=== PATIENT | male | born 1955 | race Two or more races ===

== ENCOUNTER 2017-12-06 08:37 | Inpatient (IN) | payer MEDICAID ==
[~2017-12-06] VITALS: Ht 167.6 cm; Wt 97.3 kg
[2017-12-06] MEDS ORDERED: ALBUTEROL SULFATE 2.5 MG/3 ML ONE ×2 (09:26→10:23)
[2017-12-06] MEDS ORDERED: HYDR-3307 PO (09:27)
[2017-12-06] MEDS ORDERED: METF500T4 PO (09:27)
[2017-12-06] MEDS ORDERED: LISI2.5T PO (09:27)
[2017-12-06] MEDS ORDERED: ATORVASTATIN PO (09:27)
[2017-12-06] MEDS ORDERED: DIAZ10TA4 PO (09:27)
[2017-12-06 09:28] LABS: BASOPHILS # (AUTO) 0.21 x10^3/uL (0-0.1); BASOPHILS % (AUTO) 1 % (0-1); EOSINOPHILS % (AUTO) 0 % (1-7); LYMPHOCYTES # (AUTO) 1.34 x10^3/uL (1-3.4); LYMPHOCYTES % (AUTO) 8 % (22-44); MD NO; MEAN CORPUSCULAR HGB CONC 32.6 g/dL (33.2-36.2); MEAN PLATELET VOLUME 8.4 fL (7.4-10.4); MONOCYTES # (AUTO) 1.08 x10^3/uL (0.2-0.8); MONOCYTES % (AUTO) 6 % (2-9); NEUTROPHILS # (AUTO) 15.09 x10^3/uL (1.8-6.8); NEUTROPHILS % (AUTO) 85 % (42-75); PLATELET COUNT 247 x10^3/uL (130-400); RED BLOOD COUNT 4.71 x10^6/uL (4.38-5.82); RED CELL DISTRIBUTION WIDTH 18.9 % (9.4-14.8)
[2017-12-06] MEDS ORDERED: ALBUTEROL SULFATE 2.5 MG/3 ML NPPB ONE ×2 (09:30→10:30)
[2017-12-06 09:36] LABS: ALBUMIN 2.9 g/dL (3.4-5.0); ANION GAP 7 mmol/L (5-15); CHLORIDE 110 mmol/L (98-107)
[2017-12-06 09:39] LABS: ALANINE AMINOTRANSFERASE 334 U/L (12-78); ALKALINE PHOSPHATASE 78 U/L (45-117); BILIRUBIN,TOTAL 0.4 mg/dL (0.2-1.0); CREATININE 0.78 mg/dL (0.7-1.3); TOTAL PROTEIN 7.1 g/dL (6.4-8.2)
[2017-12-06 09:43] LABS: TROPONIN I < 0.015 ng/mL (0.000-0.045)
[2017-12-06] MEDS ORDERED: MORPHINE SULFATE 4 MG/ML, 1ML IVPush PRN (10:30)
[2017-12-06] MEDS ORDERED: SODIUM CHLORIDE FLUSH 10ML SYR IVF ONE (10:30)
[2017-12-06] MEDS ORDERED: MORPHINE SULFATE 4 MG/ML, 1ML ONE (10:32)
[2017-12-06] MEDS ORDERED: SODIUM CHLORIDE FLUSH 10ML SYR IVF PRN (11:30)
[2017-12-06] MEDS ORDERED: ACETAMINOPHEN 325 MG TABLET PO PRN (12:00)
[2017-12-06] MEDS: ENOXAPARIN 40 MG/0.4 ML SQ SCH (12:00)
[2017-12-06] MEDS ORDERED: POLYETHYLENE GLYCOL 17 GM PACKET PO PRN (12:00)
[2017-12-06] MEDS ORDERED: hydrALAzine 20 MG/ML, 1ML IVPush PRN (12:00)
[2017-12-06] MEDS ORDERED: DOCUSATE 100 MG CAPSULE PO PRN (12:00)
[2017-12-06] MEDS ORDERED: ONDANSETRON ODT 4 MG PO PRN (12:00)
[2017-12-06 12:18] LABS: % IRON SATURATION 10 % (20-55); IRON LEVEL 40 mcg/dL (65-175); TOTAL IRON BINDING CAPACITY 384 mcg/dL (250-450)
[2017-12-06 12:33] VITALS: BP 160/94
[2017-12-06] MEDS: SODIUM CHLORIDE 0.9% 1,000 ML IV SCH ×2 (13:16→23:38)
[2017-12-06] MEDS: HYDROcodone/APAP 5/325 TABLET PO PRN ×3 (13:38→23:36)
[2017-12-06] MEDS: GUAIFENESIN ER 600 MG TABLET PO SCH ×2 (13:38→21:58)
[2017-12-06] MEDS: metFORMIN 500 MG TABLET PO SCH ×2 (13:39→21:58)
[2017-12-06] MEDS: LISINOPRIL 10 MG TABLET PO SCH (13:46)
[2017-12-06] MEDS: ALBUTEROL/IPRATROPIUM 2.5MG/0.5MG, 3 ML NPPB SCH ×2 (14:13→19:09)
[2017-12-06] MEDS: DOXYCYCLINE 100MG TABLET PO SCH ×2 (14:33→21:58)
[2017-12-06] MEDS: INSULIN LISPRO 100 UNITS/ML, PEN SQ-INSULIN SCH ×2 (16:00→20:59)
[2017-12-06 16:23] VITALS: BP 158/89
[2017-12-06 19:34] VITALS: BP 158/86
[2017-12-07 00:23] VITALS: BP 162/91
[2017-12-07 05:35] LABS: BASOPHILS # (AUTO) 0.17 x10^3/uL (0-0.1); BASOPHILS % (AUTO) 1 % (0-1); EOSINOPHILS # (AUTO) 0.01 x10^3/uL (0-0.4); EOSINOPHILS % (AUTO) 0 % (1-7); LYMPHOCYTES # (AUTO) 1.89 x10^3/uL (1-3.4); LYMPHOCYTES % (AUTO) 16 % (22-44); MD NO; MEAN CORPUSCULAR HGB CONC 32.3 g/dL (33.2-36.2); MEAN CORPUSCULAR VOLUME 83.5 fL (81-97); MEAN PLATELET VOLUME 8.8 fL (7.4-10.4); MONOCYTES # (AUTO) 1.17 x10^3/uL (0.2-0.8); MONOCYTES % (AUTO) 10 % (2-9); NEUTROPHILS % (AUTO) 73 % (42-75); PLATELET COUNT 179 x10^3/uL (130-400); RED BLOOD COUNT 4.18 x10^6/uL (4.38-5.82); RED CELL DISTRIBUTION WIDTH 18.6 % (9.4-14.8)
[2017-12-07 05:43] LABS: CHLORIDE 109 mmol/L (98-107)
[2017-12-07 05:45] LABS: HEMOGLOBIN A1C 6.6 % (4.2-6.3)
[2017-12-07 05:53] LABS: ALANINE AMINOTRANSFERASE 378 U/L (12-78); ALBUMIN 2.5 g/dL (3.4-5.0); ALKALINE PHOSPHATASE 74 U/L (45-117); ANION GAP 7 mmol/L (5-15); BILIRUBIN,TOTAL 0.4 mg/dL (0.2-1.0); CALCIUM 7.3 mg/dL (8.5-10.1); CHOL/HDL RATIO 2.2; CHOLESTEROL, TOTAL 150 mg/dL (140-239); CREATININE 0.73 mg/dL (0.7-1.3); HDL CHOL % 45 % (26-37); HDL CHOLESTEROL (DIRECT) 67 mg/dL (40-60); LDL CHOLESTEROL,CALCULATED 69 mg/dL (54-169); THYROID STIMULATING HORMONE 0.493 mIU/L (0.358-3.740); TOTAL PROTEIN 6.2 g/dL (6.4-8.2); TRIGLYCERIDES 72 mg/dL (50-200); VLDL CHOLESTEROL 14 mg/dL (0-25)
[2017-12-07 07:22] VITALS: BP 166/96
[2017-12-07] MEDS: INSULIN LISPRO 100 UNITS/ML, PEN SQ-INSULIN SCH ×3 (07:28→17:59)
[2017-12-07] MEDS ORDERED: HYDROmorphone 2 MG/ML, 1ML IV ONE (07:30)
[2017-12-07] MEDS ORDERED: LISI-167 PO (07:43)
[2017-12-07] MEDS ORDERED: ALBU18HF INH (07:43)
[2017-12-07] MEDS ORDERED: METF500T4 PO (07:43)
[2017-12-07] MEDS ORDERED: ATORVASTATIN PO (07:43)
[2017-12-07] MEDS ORDERED: FERR325T18 PO (07:47)
[2017-12-07] MEDS: ALBUTEROL/IPRATROPIUM 2.5MG/0.5MG, 3 ML NPPB SCH (08:03)
[2017-12-07] MEDS: LISINOPRIL 10 MG TABLET PO SCH (08:12)
[2017-12-07] MEDS: DOXYCYCLINE 100MG TABLET PO SCH (08:13)
[2017-12-07] MEDS: metFORMIN 500 MG TABLET PO SCH (08:13)
[2017-12-07] MEDS: GUAIFENESIN ER 600 MG TABLET PO SCH (08:13)
[2017-12-07] MEDS ORDERED: ALBUTEROL/IPRATROPIUM 2.5MG/0.5MG, 3 ML NPPB PRN (10:30)
[2017-12-07] MEDS: ENOXAPARIN 40 MG/0.4 ML SQ SCH (12:46)
[2017-12-07] MEDS: HYDROcodone/APAP 5/325 TABLET PO PRN (12:48)
[2017-12-07 13:28] VITALS: BP 163/99
== END 2017-12-07 18:25 | disposition home or self-care (01) | DRG 202 ==
LOC: ED 11:11 → EDIP 11:12 → ED 11:31 → SUATTDRO 11:42 → 4WST 12:32
PROVIDERS: ADMIT Hospitalist; ATTEND Hospitalist
DX: J45.41 Moderate persistent asthma with (acute) exacerbation (principal); E43 Unspecified severe protein-calorie malnutrition; J96.11 Chronic respiratory failure with hypoxia; E11.9 Type 2 diabetes mellitus without complications; B18.2 Chronic viral hepatitis C; D50.9 Iron deficiency anemia, unspecified; E66.9 Obesity, unspecified; R74.0 Nonspecific elevation of levels of transaminase and lactic acid dehydrogenase [LDH]; M54.9 Dorsalgia, unspecified; I25.10 Atherosclerotic heart disease of native coronary artery without angina pectoris; I10 Essential (primary) hypertension; G89.4 Chronic pain syndrome; F17.210 Nicotine dependence, cigarettes, uncomplicated; Z86.73 Personal history of transient ischemic attack (TIA), and cerebral infarction without residual deficits; I25.2 Old myocardial infarction; Z90.49 Acquired absence of other specified parts of digestive tract; Z88.8 Allergy status to other drugs, medicaments and biological substances; Z88.2 Allergy status to sulfonamides; Z79.899 Other long term (current) drug therapy; Z68.34 Body mass index [BMI] 34.0-34.9, adult
CPT/HCPCS: 36415; 71046; 71250; 80053; 80061; 82962; 83036; 83540; 83550; 83735; 84100; 84443; 84484; 85025; 93005; 93306; 94640; J1170; J7613; J7620; J1815; J7030; J7512

== ENCOUNTER 2017-12-24 08:29 | Inpatient (IN) | payer MEDICAID ==
[~2017-12-24] VITALS: Ht 170.2 cm; Wt 98.7 kg
[~2017-12-24 08:29] MED LIST: ALBU18HF INH; ATORVASTATIN PO; DIAZ10TA4 PO; FERR325T18 PO; HYDR-3307 PO; LISI-167 PO; LISI2.5T PO; METF500T4 PO
[2017-12-24] MEDS ORDERED: methylPREDNISolone SOD SUCC 125 MG/2 ML ONE (08:47)
[2017-12-24] MEDS ORDERED: ALBUTEROL/IPRATROPIUM 2.5MG/0.5MG, 3 ML ONE (08:48)
[2017-12-24] MEDS ORDERED: methylPREDNISolone SOD SUCC 125 MG/2 ML IVP ONE (09:00)
[2017-12-24] MEDS ORDERED: ALBUTEROL/IPRATROPIUM 2.5MG/0.5MG, 3 ML NPPB ONE (09:00)
[2017-12-24 09:42] LABS: BASOPHILS # (AUTO) 0.14 x10^3/uL (0-0.1); BASOPHILS % (AUTO) 1 % (0-1); EOSINOPHILS # (AUTO) 0.07 x10^3/uL (0-0.4); EOSINOPHILS % (AUTO) 1 % (1-7); LYMPHOCYTES % (AUTO) 36 % (22-44); MD NO; MEAN CORPUSCULAR HEMOGLOBIN 27.1 pg (27.5-34.5); MEAN CORPUSCULAR HGB CONC 32.5 g/dL (33.2-36.2); MEAN CORPUSCULAR VOLUME 83.5 fL (81-97); MEAN PLATELET VOLUME 8.4 fL (7.4-10.4); MONOCYTES # (AUTO) 1.02 x10^3/uL (0.2-0.8); MONOCYTES % (AUTO) 10 % (2-9); NEUTROPHILS # (AUTO) 5.63 x10^3/uL (1.8-6.8); NEUTROPHILS % (AUTO) 53 % (42-75); PLATELET COUNT 268 x10^3/uL (130-400); RED BLOOD COUNT 5.07 x10^6/uL (4.38-5.82); RED CELL DISTRIBUTION WIDTH 21.1 % (9.4-14.8)
[2017-12-24 09:50] LABS: ALBUMIN 3.2 g/dL (3.4-5.0); ANION GAP 9 mmol/L (5-15); CALCIUM 8.1 mg/dL (8.5-10.1); CHLORIDE 109 mmol/L (98-107); CREATININE 0.72 mg/dL (0.7-1.3)
[2017-12-24 09:54] LABS: TROPONIN I < 0.015 ng/mL (0.000-0.045)
[2017-12-24] MEDS ORDERED: LEVOFLOXACIN/PMX 750MG/150ML 150 ML IVPB ONE (10:00)
[2017-12-24] MEDS ORDERED: HYDROcodone/APAP 5/325 TABLET PO ONE (10:00)
[2017-12-24] MEDS ORDERED: HYDROcodone/APAP 5/325 TABLET ONE (10:08)
[2017-12-24] MEDS ORDERED: LEVOFLOXACIN/PMX 750MG/150ML 150 ML ONE (10:08)
[2017-12-24 11:00] VITALS: BP 137/76
[2017-12-24] MEDS ORDERED: BISACODYL 10 MG SUPP PR PRN (12:00)
[2017-12-24] MEDS: INSULIN LISPRO 100 UNITS/ML, PEN SQ-INSULIN SCH ×3 (12:00→21:16)
[2017-12-24] MEDS ORDERED: PROMETHAZINE 25 MG/ML, 1ML IM PRN (12:00)
[2017-12-24] MEDS ORDERED: POLYETHYLENE GLYCOL 17 GM PACKET PO PRN (12:00)
[2017-12-24] MEDS ORDERED: FUROSEMIDE 20 MG/2 ML IV ONE (12:00)
[2017-12-24] MEDS ORDERED: ONDANSETRON ODT 4 MG PO PRN (12:00)
[2017-12-24] MEDS ORDERED: ACETAMINOPHEN 325 MG TABLET PO PRN (12:00)
[2017-12-24] MEDS: ALBUTEROL/IPRATROPIUM 2.5MG/0.5MG, 3 ML NPPB SCH ×3 (12:28→20:30)
[2017-12-24 12:37] LABS: HEMOGLOBIN A1C 6.6 % (4.2-6.3)
[2017-12-24 12:38] LABS: FREE T4 (FREE THYROXINE) 1.22 ng/dL (0.76-1.46); THYROID STIMULATING HORMONE 1.52 mIU/L (0.358-3.740)
[2017-12-24] MEDS: DOXYCYCLINE 100MG TABLET PO SCH ×2 (13:12→19:49)
[2017-12-24] MEDS: FERROUS SULFATE 325 MG TABLET PO SCH ×2 (13:12→19:49)
[2017-12-24] MEDS: LISINOPRIL 10 MG TABLET PO SCH (13:12)
[2017-12-24] MEDS: CEFTRIAXONE PMX 2GM/50ML 50 ML IV SCH (13:13)
[2017-12-24] MEDS: HEPARIN 5,000 UNITS/ML, 1ML SQ SCH ×2 (13:13→21:16)
[2017-12-24 13:22] VITALS: BP 149/89
[2017-12-24] MEDS: HYDROmorphone 2 MG/ML, 1ML IVPush PRN ×3 (13:27→21:15)
[2017-12-24] MEDS: methylPREDNISolone SOD SUCC 125 MG/2 ML IVPush SCH ×2 (16:30→22:14)
[2017-12-24] MEDS: FLUTICASONE/VILANTEROL 200-25MCG/INH INH SCH (16:30)
[2017-12-24 19:25] VITALS: BP 133/90
[2017-12-24] MEDS: OXYcodone IR 5MG TABLET PO PRN (19:49)
[2017-12-24] MEDS: ATORVASTATIN 20 MG PO SCH (19:51)
[2017-12-24 20:07] LABS: CULTURE INDICATED? NO; MICROSCOPIC INDICATED
[2017-12-25] MEDS: HYDROmorphone 2 MG/ML, 1ML IVPush PRN ×6 (00:32→22:13)
[2017-12-25 01:16] VITALS: BP 125/88
[2017-12-25] MEDS: OXYcodone IR 5MG TABLET PO PRN ×3 (02:41→19:47)
[2017-12-25] MEDS: HEPARIN 5,000 UNITS/ML, 1ML SQ SCH ×3 (04:40→21:32)
[2017-12-25] MEDS: methylPREDNISolone SOD SUCC 125 MG/2 ML IVPush SCH ×4 (04:40→22:13)
[2017-12-25 05:11] LABS: BASOPHILS # (AUTO) 0.04 x10^3/uL (0-0.1); BASOPHILS % (AUTO) 0 % (0-1); EOSINOPHILS % (AUTO) 0 % (1-7); LYMPHOCYTES # (AUTO) 1.17 x10^3/uL (1-3.4); LYMPHOCYTES % (AUTO) 8 % (22-44); MD NO; MEAN CORPUSCULAR HEMOGLOBIN 27.6 pg (27.5-34.5); MEAN CORPUSCULAR HGB CONC 32.8 g/dL (33.2-36.2); MEAN CORPUSCULAR VOLUME 84.2 fL (81-97); MEAN PLATELET VOLUME 8.9 fL (7.4-10.4); MONOCYTES # (AUTO) 0.42 x10^3/uL (0.2-0.8); MONOCYTES % (AUTO) 3 % (2-9); NEUTROPHILS # (AUTO) 12.26 x10^3/uL (1.8-6.8); NEUTROPHILS % (AUTO) 88 % (42-75); PLATELET COUNT 285 x10^3/uL (130-400); RED BLOOD COUNT 5.07 x10^6/uL (4.38-5.82); RED CELL DISTRIBUTION WIDTH 21.1 % (9.4-14.8)
[2017-12-25 05:12] LABS: CHLORIDE 105 mmol/L (98-107)
[2017-12-25 05:20] LABS: ALANINE AMINOTRANSFERASE 246 U/L (12-78); ALBUMIN 3.2 g/dL (3.4-5.0); ALKALINE PHOSPHATASE 98 U/L (45-117); ANION GAP 10 mmol/L (5-15); BILIRUBIN,TOTAL 0.6 mg/dL (0.2-1.0); CALCIUM 8.7 mg/dL (8.5-10.1); CHOL/HDL RATIO 2.7; CHOLESTEROL, TOTAL 184 mg/dL (140-239); CREATININE 1.18 mg/dL (0.7-1.3); HDL CHOL % 36 % (26-37); HDL CHOLESTEROL (DIRECT) 67 mg/dL (40-60); LDL CHOLESTEROL,CALCULATED 104 mg/dL (54-169); LDL/HDL RATIO 1.6 (0.5-3.0); TOTAL PROTEIN 8.1 g/dL (6.4-8.2); TRIGLYCERIDES 65 mg/dL (50-200); VLDL CHOLESTEROL 13 mg/dL (0-25)
[2017-12-25] MEDS: INSULIN LISPRO 100 UNITS/ML, PEN SQ-INSULIN SCH ×4 (07:00→21:32)
[2017-12-25] MEDS: ALBUTEROL/IPRATROPIUM 2.5MG/0.5MG, 3 ML NPPB SCH ×4 (07:25→19:31)
[2017-12-25] MEDS: LISINOPRIL 10 MG TABLET PO SCH (08:06)
[2017-12-25] MEDS: FLUTICASONE/VILANTEROL 200-25MCG/INH INH SCH (08:06)
[2017-12-25] MEDS: SENNA/DOCUSATE TABLET PO SCH (08:06)
[2017-12-25] MEDS: FERROUS SULFATE 325 MG TABLET PO SCH ×2 (08:06→21:32)
[2017-12-25] MEDS: DOXYCYCLINE 100MG TABLET PO SCH ×2 (08:06→21:32)
[2017-12-25 08:16] VITALS: BP 166/101
[2017-12-25] MEDS: hydrALAzine 20 MG/ML, 1ML IVPush PRN (08:20)
[2017-12-25 09:34] VITALS: BP 155/96
[2017-12-25] MEDS: CEFTRIAXONE PMX 2GM/50ML 50 ML IV SCH (13:22)
[2017-12-25 14:44] VITALS: BP 135/79
[2017-12-25 18:52] VITALS: BP 111/78
[2017-12-25] MEDS: ATORVASTATIN 20 MG PO SCH (21:00)
[2017-12-26] MEDS: OXYcodone IR 5MG TABLET PO PRN ×2 (00:50→06:11)
[2017-12-26 02:58] VITALS: BP 133/88
[2017-12-26] MEDS: HYDROmorphone 2 MG/ML, 1ML IVPush PRN ×3 (03:10→12:37)
[2017-12-26] MEDS: HEPARIN 5,000 UNITS/ML, 1ML SQ SCH ×3 (04:42→21:44)
[2017-12-26] MEDS: methylPREDNISolone SOD SUCC 125 MG/2 ML IVPush SCH ×3 (04:42→19:46)
[2017-12-26 06:45] VITALS: BP 147/85
[2017-12-26] MEDS: ALBUTEROL/IPRATROPIUM 2.5MG/0.5MG, 3 ML NPPB SCH ×4 (07:02→20:00)
[2017-12-26] MEDS: SENNA/DOCUSATE TABLET PO SCH (07:42)
[2017-12-26] MEDS: LISINOPRIL 10 MG TABLET PO SCH (08:08)
[2017-12-26] MEDS: FLUTICASONE/VILANTEROL 200-25MCG/INH INH SCH (08:08)
[2017-12-26] MEDS: DOXYCYCLINE 100MG TABLET PO SCH ×2 (08:08→21:45)
[2017-12-26] MEDS: FERROUS SULFATE 325 MG TABLET PO SCH ×2 (08:08→21:45)
[2017-12-26] MEDS: INSULIN LISPRO 100 UNITS/ML, PEN SQ-INSULIN SCH ×4 (08:12→21:45)
[2017-12-26] MEDS: CEFTRIAXONE PMX 2GM/50ML 50 ML IV SCH (12:38)
[2017-12-26 14:53] VITALS: BP 136/93
[2017-12-26] MEDS: OxyconTIN ER 10 MG TAB.ER PO SCH (16:44)
[2017-12-26] MEDS: GUAIFENESIN 200 MG TABLET PO SCH (16:44)
[2017-12-26 20:55] VITALS: BP 144/78
[2017-12-26] MEDS: ATORVASTATIN 20 MG PO SCH (21:00)
[2017-12-26] MEDS: HYDROcodone/APAP 10/325 MG TABLET PO SCH (21:54)
[2017-12-27] MEDS: methylPREDNISolone SOD SUCC 125 MG/2 ML IVPush SCH ×4 (02:17→18:39)
[2017-12-27] MEDS: HYDROcodone/APAP 10/325 MG TABLET PO SCH ×2 (02:17→06:08)
[2017-12-27 02:35] VITALS: BP 137/77
[2017-12-27 05:47] LABS: BASOPHILS % (AUTO) 1 % (0-1); EOSINOPHILS % (AUTO) 0 % (1-7); LYMPHOCYTES # (AUTO) 1.01 x10^3/uL (1-3.4); LYMPHOCYTES % (AUTO) 7 % (22-44); MD NO; MEAN CORPUSCULAR HEMOGLOBIN 26.9 pg (27.5-34.5); MEAN CORPUSCULAR HGB CONC 31.6 g/dL (33.2-36.2); MEAN CORPUSCULAR VOLUME 85.1 fL (81-97); MEAN PLATELET VOLUME 8.3 fL (7.4-10.4); MONOCYTES # (AUTO) 0.45 x10^3/uL (0.2-0.8); MONOCYTES % (AUTO) 3 % (2-9); NEUTROPHILS # (AUTO) 13.47 x10^3/uL (1.8-6.8); NEUTROPHILS % (AUTO) 90 % (42-75); PLATELET COUNT 262 x10^3/uL (130-400); RED CELL DISTRIBUTION WIDTH 21.6 % (9.4-14.8)
[2017-12-27 05:59] LABS: ANION GAP 6 mmol/L (5-15); CALCIUM 8.3 mg/dL (8.5-10.1); CHLORIDE 112 mmol/L (98-107)
[2017-12-27] MEDS: GUAIFENESIN 200 MG TABLET PO SCH ×2 (06:08→17:29)
[2017-12-27] MEDS: OxyconTIN ER 10 MG TAB.ER PO SCH ×2 (06:08→17:29)
[2017-12-27] MEDS: HEPARIN 5,000 UNITS/ML, 1ML SQ SCH ×3 (06:08→20:32)
[2017-12-27] MEDS: ALBUTEROL/IPRATROPIUM 2.5MG/0.5MG, 3 ML NPPB SCH ×4 (07:00→19:37)
[2017-12-27] MEDS: INSULIN LISPRO 100 UNITS/ML, PEN SQ-INSULIN SCH ×4 (07:00→20:33)
[2017-12-27 07:09] VITALS: BP 139/87
[2017-12-27] MEDS: FLUTICASONE/VILANTEROL 200-25MCG/INH INH SCH (09:00)
[2017-12-27] MEDS: SENNA/DOCUSATE TABLET PO SCH (09:00)
[2017-12-27] MEDS: DOXYCYCLINE 100MG TABLET PO SCH ×2 (09:42→20:32)
[2017-12-27] MEDS: FERROUS SULFATE 325 MG TABLET PO SCH ×2 (09:42→20:32)
[2017-12-27] MEDS: HYDROcodone/APAP 10/325 MG TABLET PO PRN ×4 (09:42→22:07)
[2017-12-27] MEDS: LISINOPRIL 10 MG TABLET PO SCH (09:42)
[2017-12-27] MEDS: CEFTRIAXONE PMX 2GM/50ML 50 ML IV SCH (12:52)
[2017-12-27 14:13] VITALS: BP 166/94
[2017-12-27] MEDS: ATORVASTATIN 20 MG PO SCH (20:33)
[2017-12-27 21:48] VITALS: BP 176/100
[2017-12-27] MEDS: hydrALAzine 20 MG/ML, 1ML IVPush PRN (22:06)
[2017-12-27] MEDS ORDERED: LABETALOL 5MG/ML, 20ML ONE (23:36)
[2017-12-27] MEDS ORDERED: MORPHINE SULFATE 4 MG/ML, 1ML ONE (23:40)
[2017-12-27 23:59] LABS: TROPONIN I < 0.015 ng/mL (0.000-0.045)
[2017-12-28] MEDS ORDERED: LABETALOL 5MG/ML, 20ML IVPush ONE
[2017-12-28] MEDS ORDERED: MORPHINE SULFATE 4 MG/ML, 1ML IVPush ONE
[2017-12-28 00:14] VITALS: BP 158/91
[2017-12-28] MEDS: methylPREDNISolone SOD SUCC 125 MG/2 ML IVPush SCH ×2 (01:08→09:08)
[2017-12-28] MEDS: GUAIFENESIN 200 MG TABLET PO SCH ×2 (05:53→16:51)
[2017-12-28] MEDS: OxyconTIN ER 10 MG TAB.ER PO SCH ×2 (05:53→16:51)
[2017-12-28] MEDS: HEPARIN 5,000 UNITS/ML, 1ML SQ SCH ×3 (05:53→21:25)
[2017-12-28] MEDS: HYDROcodone/APAP 10/325 MG TABLET PO PRN ×2 (05:58→14:38)
[2017-12-28] MEDS: INSULIN LISPRO 100 UNITS/ML, PEN SQ-INSULIN SCH ×4 (07:00→21:25)
[2017-12-28] MEDS: ALBUTEROL/IPRATROPIUM 2.5MG/0.5MG, 3 ML NPPB SCH ×4 (07:00→20:00)
[2017-12-28 09:00] VITALS: BP 188/104
[2017-12-28] MEDS: SENNA/DOCUSATE TABLET PO SCH (09:00)
[2017-12-28] MEDS: LISINOPRIL 10 MG TABLET PO SCH (09:08)
[2017-12-28] MEDS: FLUTICASONE/VILANTEROL 200-25MCG/INH INH SCH (09:08)
[2017-12-28] MEDS: DOXYCYCLINE 100MG TABLET PO SCH ×2 (09:09→21:26)
[2017-12-28] MEDS: FERROUS SULFATE 325 MG TABLET PO SCH ×2 (09:09→21:26)
[2017-12-28] MEDS ORDERED: MORPHINE SULFATE 4 MG/ML, 1ML IVPush PRN (12:00)
[2017-12-28] MEDS: LOSARTAN 50MG TABLET PO SCH ×2 (12:03→21:26)
[2017-12-28] MEDS: ONDANSETRON 2MG/ML, 2ML IVPush PRN (13:49)
[2017-12-28 13:55] VITALS: BP 167/95
[2017-12-28] MEDS: CEFTRIAXONE PMX 2GM/50ML 50 ML IV SCH (14:37)
[2017-12-28 14:39] VITALS: BP 166/100
[2017-12-28 19:21] VITALS: BP 137/80
[2017-12-28] MEDS: HYDROcodone/APAP 10/325 MG TABLET PO SCH (21:25)
[2017-12-28] MEDS: ATORVASTATIN 20 MG PO SCH (21:26)
[2017-12-29 02:00] VITALS: BP 171/85
[2017-12-29] MEDS: GUAIFENESIN 200 MG TABLET PO SCH ×2 (05:55→17:33)
[2017-12-29] MEDS: HEPARIN 5,000 UNITS/ML, 1ML SQ SCH ×2 (05:56→13:50)
[2017-12-29] MEDS: OxyconTIN ER 10 MG TAB.ER PO SCH ×2 (05:56→17:33)
[2017-12-29] MEDS: INSULIN LISPRO 100 UNITS/ML, PEN SQ-INSULIN SCH ×3 (07:00→17:41)
[2017-12-29] MEDS: ALBUTEROL/IPRATROPIUM 2.5MG/0.5MG, 3 ML NPPB SCH ×3 (07:50→15:52)
[2017-12-29 07:56] VITALS: BP 164/97
[2017-12-29] MEDS: SENNA/DOCUSATE TABLET PO SCH (09:00)
[2017-12-29] MEDS: DOXYCYCLINE 100MG TABLET PO SCH (09:28)
[2017-12-29] MEDS: FERROUS SULFATE 325 MG TABLET PO SCH (09:28)
[2017-12-29] MEDS: LOSARTAN 50MG TABLET PO SCH (09:28)
[2017-12-29] MEDS: FLUTICASONE/VILANTEROL 200-25MCG/INH INH SCH (09:29)
[2017-12-29] MEDS ORDERED: FLUT1BLS INH (11:25)
[2017-12-29] MEDS ORDERED: PRED5TAB PO (11:25)
[2017-12-29] MEDS ORDERED: LOSA50TA2 PO (11:25)
[2017-12-29] MEDS ORDERED: LEVO750T26 PO (11:25)
[2017-12-29] MEDS ORDERED: GUAI200T3 PO (11:25)
[2017-12-29] MEDS ORDERED: IPRA3AMP NPPB (11:25)
[2017-12-29] MEDS ORDERED: HYDR25TA6 PO (11:25)
[2017-12-29] MEDS ORDERED: HYDROCHLOROTHIAZIDE 25 MG TABLET PO SCH (11:30)
[2017-12-29] MEDS ORDERED: IBUPROFEN 200 MG TABLET PO PRN (11:30)
[2017-12-29] MEDS ORDERED: CEFTAZIDIME PMX 2 GM/50ML 50 ML IV SCH (11:30)
[2017-12-29] MEDS: CEFTAZIDIME 2,000 MG in SODIUM CHLORIDE 0.9% 50 ML IV SCH ×2 (11:48→12:45)
[2017-12-29] MEDS: HYDROcodone/APAP 10/325 MG TABLET PO SCH (13:51)
[2017-12-29 14:15] VITALS: BP 167/115
[2017-12-29] MEDS: ONDANSETRON 2MG/ML, 2ML IVPush PRN (17:41)
== END 2017-12-29 18:11 | disposition home or self-care (01) | DRG 193 ==
LOC: ED 09:34 → EDIP 09:53 → 3NE 10:55 → 5SO 12-28 00:03
PROVIDERS: ADMIT Internal Medicine; ATTEND Internal Medicine
DX: J15.9 Unspecified bacterial pneumonia (principal); J96.21 Acute and chronic respiratory failure with hypoxia; E44.0 Moderate protein-calorie malnutrition; I50.32 Chronic diastolic (congestive) heart failure; J44.0 Chronic obstructive pulmonary disease with (acute) lower respiratory infection; J44.1 Chronic obstructive pulmonary disease with (acute) exacerbation; Z68.34 Body mass index [BMI] 34.0-34.9, adult; B18.2 Chronic viral hepatitis C; E11.9 Type 2 diabetes mellitus without complications; E66.9 Obesity, unspecified; E78.5 Hyperlipidemia, unspecified; G89.29 Other chronic pain; I11.0 Hypertensive heart disease with heart failure; M54.9 Dorsalgia, unspecified; I25.2 Old myocardial infarction; J84.10 Pulmonary fibrosis, unspecified; Z82.3 Family history of stroke; Z82.49 Family history of ischemic heart disease and other diseases of the circulatory system; Z83.3 Family history of diabetes mellitus; Z86.73 Personal history of transient ischemic attack (TIA), and cerebral infarction without residual deficits; Z87.891 Personal history of nicotine dependence
CPT/HCPCS: 36415; 36600; 70450; 70551; 71045; 71275; 80048; 80053; 80061; 81001; 82040; 82803; 82962; 83036; 83605; 83735; 84145; 84439; 84443; 84484; 85025; 87040; 87070; 87077; 87186; 87205; 93005; 94640; 96374; J0696; J0713; J1170; J1644; J1956; J2405; J7620; Q0162; J0360; J1940; J2930; J7512

== ENCOUNTER 2018-01-20 18:19 | Emergency (ER) | payer MEDICAID ==
[~2018-01-20] VITALS: Ht 170.2 cm; Wt 96.0 kg
[~2018-01-20 18:19] MED LIST changes: +FLUT1BLS INH; +GUAI200T3 PO; +HYDR25TA6 PO; +IPRA3AMP NPPB; +LEVO750T26 PO; +LOSA50TA2 PO; -METF500T4 PO; +METF500T5 PO; +PRED5TAB PO
[2018-01-20] MEDS ORDERED: SODIUM CHLORIDE FLUSH 10ML SYR IVF ONE (19:00)
[2018-01-20 19:27] LABS: ANION GAP 7 mmol/L (5-15); CALCIUM 8.2 mg/dL (8.5-10.1); CHLORIDE 105 mmol/L (98-107); CREATININE 0.81 mg/dL (0.7-1.3)
[2018-01-20 19:48] LABS: MEAN CORPUSCULAR HEMOGLOBIN 28.1 pg (27.5-34.5); MEAN CORPUSCULAR HGB CONC 32.8 g/dL (33.2-36.2); MEAN CORPUSCULAR VOLUME 85.6 fL (81-97); MEAN PLATELET VOLUME 8.5 fL (7.4-10.4); PLATELET COUNT 268 x10^3/uL (130-400); RED CELL DISTRIBUTION WIDTH 22.1 % (9.4-14.8)
[2018-01-20 20:02] LABS: MD YES
[2018-01-20 20:05] VITALS: BP 129/84
[2018-01-20] MEDS ORDERED: DIAZ5TAB4 PO (20:08)
[2018-01-20] MEDS ORDERED: OMNIPAQUE 350 MG/ML, 100ML BOTTLE ONE (20:08)
[2018-01-20 20:23] LABS: BAND#(MANUAL) 0.07 x10^3/uL; BANDS%(MANUAL) 1 % (0-7); EOS#(MANUAL) 0.28 x10^3/uL (0.0-0.4); EOS% (MANUAL) 4 % (1-7); LYMPHS% (MANUAL) 30 % (22-44); MONOS#(MANUAL) 0.63 x10^3/uL (0.3-2.7); MONOS% (MANUAL) 9 % (2-9); REACTIVE LYMPHS # (MANUAL) 1.05 x10^3/uL (0-0); REACTIVE LYMPHS % (MANUAL) 15 % (0-0); SEG#(MANUAL) 2.87 x10^3/uL (1.8-6.8); SEGS% (MANUAL) 41 % (42-75)
[2018-01-20 20:27] LABS: <PLATELET ESTIMATE> ADEQUATE; <PLT MORPHOLOGY> NORMAL PLT MORPH; ANISOCYTOSIS 1+; POLYCHROMASIA 1+
[2018-01-20] MEDS ORDERED: ACETAMINOPHEN 325 MG TABLET PO ONE (20:30)
[2018-01-20] MEDS ORDERED: ACETAMINOPHEN 325 MG TABLET ONE (20:30)
== END 2018-01-20 21:02 | disposition home or self-care (01) ==
LOC: ED 20:25
DX: G89.11 Acute pain due to trauma (principal); R51 Headache; R10.13 Epigastric pain; R07.89 Other chest pain; I11.0 Hypertensive heart disease with heart failure; I25.2 Old myocardial infarction; I50.9 Heart failure, unspecified; J44.9 Chronic obstructive pulmonary disease, unspecified; E11.9 Type 2 diabetes mellitus without complications; Z86.73 Personal history of transient ischemic attack (TIA), and cerebral infarction without residual deficits; Y04.0XXA Assault by unarmed brawl or fight, initial encounter; Y93.89 Activity, other specified; Y92.488 Other paved roadways as the place of occurrence of the external cause; Y99.8 Other external cause status
CPT/HCPCS: 36415; 70450; 71045; 74177; 80048; 80307; 82040; 85025; 93005; 99285; Q9967

== ENCOUNTER 2018-08-12 12:27 | Emergency (ER) | payer MEDICAID ==
[~2018-08-12] VITALS: Ht 170.2 cm; Wt 91.0 kg
[~2018-08-12 12:27] MED LIST changes: +DIAZ5TAB4 PO; -IPRA3AMP NPPB; +IPRA3AMP30 NPPB; +METF-163 PO; +METF500T17 PO; -METF500T5 PO
[2018-08-12 13:17] LABS: BASOPHILS # (AUTO) 0.03 x10^3/uL (0-0.1); BASOPHILS % (AUTO) 0 % (0-1); EOSINOPHILS # (AUTO) 0.06 x10^3/uL (0-0.4); EOSINOPHILS % (AUTO) 1 % (1-7); LYMPHOCYTES # (AUTO) 3.36 x10^3/uL (1-3.4); LYMPHOCYTES % (AUTO) 41 % (22-44); MD NO; MEAN CORPUSCULAR HEMOGLOBIN 29.8 pg (27.5-34.5); MEAN CORPUSCULAR VOLUME 93.1 fL (81-97); MEAN PLATELET VOLUME 8.4 fL (7.4-10.4); MONOCYTES # (AUTO) 0.94 x10^3/uL (0.2-0.8); MONOCYTES % (AUTO) 12 % (2-9); NEUTROPHILS # (AUTO) 3.77 x10^3/uL (1.8-6.8); NEUTROPHILS % (AUTO) 46 % (42-75); PLATELET COUNT 251 x10^3/uL (130-400); RED BLOOD COUNT 3.99 x10^6/uL (4.38-5.82); RED CELL DISTRIBUTION WIDTH 19.2 % (9.4-14.8)
[2018-08-12 13:32] LABS: ALBUMIN 2.9 g/dL (3.4-5.0); ANION GAP 9 mmol/L (5-15); CALCIUM 8.2 mg/dL (8.5-10.1); CHLORIDE 105 mmol/L (98-107)
[2018-08-12 13:37] LABS: ALANINE AMINOTRANSFERASE 257 U/L (12-78); ALKALINE PHOSPHATASE 193 U/L (45-117); CREATININE 0.56 mg/dL (0.7-1.3); TOTAL PROTEIN 7.1 g/dL (6.4-8.2)
--- NOTE | 2018-08-12 14:06 | NUR ---
FROM LOBBY TO ROOM AT THIS TIME
[2018-08-12] MEDS ORDERED: HYDROmorphone 1 MG/ML, 1ML IM ONE (15:00)
[2018-08-12] MEDS ORDERED: HYDROmorphone 2 MG/ML, 1ML ONE (15:15)
--- NOTE | 2018-08-12 15:26 | NUR ---
PT. WAS MEDICATED ORDERED. NO NAUSEA OR VOMITING NOTED WHILE IN THE ER. PT. WAS GIVEN A PRESCRIPTION FOR ZOFRAN. DISCHARGE INSTRUCTIONS GIVEN WITH UNDERSTANDING VERBALIZED ALONG WITH WILLINGNESS TO COMPLY. PT. WAS AMBULATORY WITH A STEADY GAIT TO DISCHARGE.
[2018-08-12 15:28] VITALS: BP 145/90
== END 2018-08-12 15:30 | disposition home or self-care (01) ==
LOC: ED 15:16
DX: K52.9 Noninfective gastroenteritis and colitis, unspecified (principal); M54.9 Dorsalgia, unspecified; J44.9 Chronic obstructive pulmonary disease, unspecified; I11.0 Hypertensive heart disease with heart failure; I50.9 Heart failure, unspecified; I25.2 Old myocardial infarction; E11.9 Type 2 diabetes mellitus without complications; Z86.73 Personal history of transient ischemic attack (TIA), and cerebral infarction without residual deficits
CPT/HCPCS: 36415; 80053; 83690; 85025; 96372; 99283; J1170

== ENCOUNTER 2018-10-04 14:02 | Inpatient (IN) | payer MEDICAID, OTHER ==
[~2018-10-04] VITALS: Ht 170.2 cm; Wt 85.2 kg
--- NOTE | 2018-10-04 14:16 | NUR ---
PT BIB [facility] FOR ALTERED MENTAL STATUS. PT ALERT TO PERSON ONLY. SATS 80% ON RA. PT WITH RIGHT UPPER QUADRANT ABD PAIN AND N/V SINCE TODAY. PT LIVES WITH BROTHER. PT WAS RECENTLY SEEN AT [facility] AND ADMITTED THERE. PT PLACED IN ROOM AND PLACED ON BP, MEAT PROCESS WORKER, AND PULSE OXIMETER. PT PLACED ON 3 LITERS NC AND SATS 97%. ASSESSMENT COMPLETED. PA AT BEDSIDE.
[2018-10-04] MEDS ORDERED: ONDANSETRON 2MG/ML, 2ML IVPush ONE (14:30)
[2018-10-04] MEDS ORDERED: SODIUM CHLORIDE FLUSH 10ML SYR IVF ONE (14:30)
--- NOTE | 2018-10-04 14:39 | NUR ---
ekg done and presented to md. lab at bedside.
[2018-10-04 14:47] LABS: BASOPHILS # (AUTO) 0.01 x10^3/uL (0-0.1); BASOPHILS % (AUTO) 0 % (0-1); EOSINOPHILS # (AUTO) 0.04 x10^3/uL (0-0.4); EOSINOPHILS % (AUTO) 1 % (1-7); LYMPHOCYTES # (AUTO) 1.23 x10^3/uL (1-3.4); LYMPHOCYTES % (AUTO) 26 % (22-44); MD NO; MEAN CORPUSCULAR HEMOGLOBIN 28.2 pg (27.5-34.5); MEAN CORPUSCULAR HGB CONC 31.8 g/dL (33.2-36.2); MEAN CORPUSCULAR VOLUME 88.7 fL (81-97); MEAN PLATELET VOLUME 8.2 fL (7.4-10.4); MONOCYTES # (AUTO) 0.68 x10^3/uL (0.2-0.8); MONOCYTES % (AUTO) 14 % (2-9); NEUTROPHILS # (AUTO) 2.83 x10^3/uL (1.8-6.8); NEUTROPHILS % (AUTO) 59 % (42-75); PLATELET COUNT 230 x10^3/uL (130-400); RED BLOOD COUNT 3.87 x10^6/uL (4.38-5.82); RED CELL DISTRIBUTION WIDTH 20.7 % (9.4-14.8)
--- NOTE | 2018-10-04 15:05 | NUR ---
PT TAKEN TO CT SCAN
[2018-10-04 15:19] LABS: ALANINE AMINOTRANSFERASE 85 U/L (12-78); ALBUMIN 2.2 g/dL (3.4-5.0); ANION GAP 8 mmol/L (5-15); CALCIUM 7.7 mg/dL (8.5-10.1); CHLORIDE 108 mmol/L (98-107)
[2018-10-04 15:22] LABS: ALKALINE PHOSPHATASE 204 U/L (45-117); BILIRUBIN,TOTAL 0.6 mg/dL (0.2-1.0); CREATININE 0.64 mg/dL (0.7-1.3); TOTAL PROTEIN 6.4 g/dL (6.4-8.2); TROPONIN I < 0.015 ng/mL (0.000-0.045)
--- NOTE | 2018-10-04 15:32 | NUR ---
PT BACK FROM CT AND US AT BEDSIDE. TWO ATTEMPS FOR IV UNSUCCESSFUL. IV STARTED RIGHT EJ.
[2018-10-04] MEDS ORDERED: METF500T27 PO (16:16)
[2018-10-04] MEDS ORDERED: LISI-167 PO (16:16)
[2018-10-04] MEDS ORDERED: INSU100C SQ-INSULIN (16:17)
[2018-10-04] MEDS ORDERED: OMEP10CA4 PO (16:17)
[2018-10-04] MEDS ORDERED: INSU100I11 SQ (16:18)
[2018-10-04 16:32] LABS: SALICYLATE LEVEL < 1.7 mg/dL (2.8-20.0)
[2018-10-04 16:38] LABS: ACETAMINOPHEN < 2 mcg/mL (10-30)
[2018-10-04] MEDS ORDERED: LACTULOSE 20 GM/30 ML UDC PO ONE (17:00)
[2018-10-04] MEDS ORDERED: LABETALOL 20 MG/4 ML IVPush PRN (17:30)
[2018-10-04] MEDS ORDERED: ONDANSETRON 2MG/ML, 2ML IVPush PRN (17:30)
[2018-10-04] MEDS ORDERED: hydrALAzine 20 MG/ML, 1ML IVPush PRN (17:30)
--- NOTE | 2018-10-04 17:32 | NUR ---
GAVE REPORT TO RN ON FLOOR. PT WILL BE TRANSFERRED.
[2018-10-04] MEDS ORDERED: ONDANSETRON 2MG/ML, 2ML ONE (17:37)
[2018-10-04 17:38] LABS: RAPID INFLUENZA A Negative (Negative); RAPID INFLUENZA B Negative (Negative)
--- NOTE | 2018-10-04 17:54 | NUR ---
PT TRANSFERRED TO FLOOR.
[2018-10-04] MEDS: LACTATED RINGERS 1,000 ML IV SCH (18:34)
[2018-10-04 19:28] VITALS: BP 108/73
[2018-10-04] MEDS: INSULIN LISPRO 100 UNITS/ML, PEN SQ-INSULIN SCH (21:00)
[2018-10-05 02:08] VITALS: BP 112/70
[2018-10-05] MEDS: LACTATED RINGERS 1,000 ML IV SCH (06:13)
[2018-10-05 06:22] LABS: BASOPHILS # (AUTO) 0.02 x10^3/uL (0-0.1); BASOPHILS % (AUTO) 0 % (0-1); EOSINOPHILS # (AUTO) 0.13 x10^3/uL (0-0.4); EOSINOPHILS % (AUTO) 3 % (1-7); LYMPHOCYTES # (AUTO) 1.65 x10^3/uL (1-3.4); LYMPHOCYTES % (AUTO) 37 % (22-44); MD NO; MEAN CORPUSCULAR HEMOGLOBIN 29.7 pg (27.5-34.5); MEAN CORPUSCULAR HGB CONC 33.5 g/dL (33.2-36.2); MEAN CORPUSCULAR VOLUME 88.6 fL (81-97); MEAN PLATELET VOLUME 8.2 fL (7.4-10.4); MONOCYTES # (AUTO) 0.75 x10^3/uL (0.2-0.8); MONOCYTES % (AUTO) 17 % (2-9); NEUTROPHILS # (AUTO) 1.87 x10^3/uL (1.8-6.8); NEUTROPHILS % (AUTO) 42 % (42-75); PLATELET COUNT 197 x10^3/uL (130-400); RED CELL DISTRIBUTION WIDTH 20.5 % (9.4-14.8)
[2018-10-05 06:27] LABS: ALBUMIN 1.9 g/dL (3.4-5.0); ANION GAP 3 mmol/L (5-15); CALCIUM 7.4 mg/dL (8.5-10.1); CHLORIDE 108 mmol/L (98-107)
[2018-10-05 06:32] LABS: ALANINE AMINOTRANSFERASE 70 U/L (12-78); ALKALINE PHOSPHATASE 185 U/L (45-117); BILIRUBIN,TOTAL 0.6 mg/dL (0.2-1.0); TOTAL PROTEIN 5.7 g/dL (6.4-8.2)
[2018-10-05] MEDS ORDERED: ALBUTEROL/IPRATROPIUM 2.5MG/0.5MG, 3 ML NPPB SCH (07:00)
[2018-10-05] MEDS: INSULIN LISPRO 100 UNITS/ML, PEN SQ-INSULIN SCH (07:00)
[2018-10-05 07:22] VITALS: BP 114/76
[2018-10-05] MEDS ORDERED: OMNIPAQUE 350 MG/ML, 100ML BOTTLE ONE (08:55)
[2018-10-05] MEDS ORDERED: LISINOPRIL 10 MG TABLET PO SCH (09:00)
== END 2018-10-05 09:43 | disposition left against medical advice (07) | DRG 441 ==
LOC: ED 15:31 → EDIP 17:36 → 4WST 17:57
PROVIDERS: ADMIT Hospitalist; ATTEND Hospitalist
DX: K72.90 Hepatic failure, unspecified without coma (principal); J18.9 Pneumonia, unspecified organism; E44.0 Moderate protein-calorie malnutrition; E72.20 Disorder of urea cycle metabolism, unspecified; J44.0 Chronic obstructive pulmonary disease with (acute) lower respiratory infection; B18.2 Chronic viral hepatitis C; E11.9 Type 2 diabetes mellitus without complications; I50.9 Heart failure, unspecified; Z88.8 Allergy status to other drugs, medicaments and biological substances; Z53.21 Procedure and treatment not carried out due to patient leaving prior to being seen by health care provider; E78.5 Hyperlipidemia, unspecified; E87.6 Hypokalemia; F17.210 Nicotine dependence, cigarettes, uncomplicated; I11.0 Hypertensive heart disease with heart failure; I25.2 Old myocardial infarction; R09.02 Hypoxemia; Z83.3 Family history of diabetes mellitus; Z86.711 Personal history of pulmonary embolism; Z86.73 Personal history of transient ischemic attack (TIA), and cerebral infarction without residual deficits; Z91.19 Patient's noncompliance with other medical treatment and regimen; Z68.29 Body mass index [BMI] 29.0-29.9, adult
CPT/HCPCS: 36415; 84145; 87400; J7620; 70450; 71045; 71275; 76700; 80053; 80307; 80329; 82140; 82962; 83605; 83690; 84484; 85025; 93005; 94640; G0378; J2405; Q9967; G0480; J7120

== ENCOUNTER 2018-12-22 07:07 | Inpatient (IN) | payer MEDICAID ==
[~2018-12-22] VITALS: Ht 170.2 cm; Wt 61.6 kg
[~2018-12-22 07:07] MED LIST changes: +INSU100C SQ-INSULIN; +INSU100I11 SQ; +METF500T27 PO; +OMEP10CA4 PO
[2018-12-22] MEDS ORDERED: LISI-167 PO (07:37)
[2018-12-22] MEDS ORDERED: OXYC10TA47 PO (07:40)
[2018-12-22] MEDS ORDERED: ONDANSETRON 2MG/ML, 2ML IVPush ONE (08:00)
[2018-12-22] MEDS ORDERED: SODIUM CHLORIDE FLUSH 10ML SYR IVF ONE (08:00)
[2018-12-22 08:01] LABS: BASOPHILS # (AUTO) 0.03 x10^3/uL (0-0.1); BASOPHILS % (AUTO) 0 % (0-1); EOSINOPHILS # (AUTO) 0.05 x10^3/uL (0-0.4); EOSINOPHILS % (AUTO) 1 % (1-7); LYMPHOCYTES # (AUTO) 1.15 x10^3/uL (1-3.4); LYMPHOCYTES % (AUTO) 17 % (22-44); MD NO; MEAN CORPUSCULAR HEMOGLOBIN 29.5 pg (27.5-34.5); MEAN CORPUSCULAR HGB CONC 32.6 g/dL (33.2-36.2); MEAN CORPUSCULAR VOLUME 90.5 fL (81-97); MEAN PLATELET VOLUME 8.6 fL (7.4-10.4); MONOCYTES # (AUTO) 0.53 x10^3/uL (0.2-0.8); MONOCYTES % (AUTO) 8 % (2-9); NEUTROPHILS # (AUTO) 5.14 x10^3/uL (1.8-6.8); NEUTROPHILS % (AUTO) 75 % (42-75); PLATELET COUNT 189 x10^3/uL (130-400); RED BLOOD COUNT 3.78 x10^6/uL (4.38-5.82); RED CELL DISTRIBUTION WIDTH 17.7 % (9.4-14.8)
[2018-12-22] MEDS ORDERED: ONDANSETRON 2MG/ML, 2ML ONE (08:12)
[2018-12-22 08:13] LABS: ALBUMIN 2.2 g/dL (3.4-5.0); ANION GAP 7 mmol/L (5-15); CALCIUM 6.4 mg/dL (8.5-10.1); CHLORIDE 104 mmol/L (98-107); CREATININE 0.56 mg/dL (0.7-1.3)
--- NOTE | 2018-12-22 08:16 | NUR ---
20 PIV INSERTED INTO R EJ. ZOFRAN 4MG IVP GIVEN FOR NAUSEA. PATIENT REQUESTING PAIN MEDICINE. CANDY OMALLEY NOTIFIED.
[2018-12-22 08:22] LABS: ALANINE AMINOTRANSFERASE 39 U/L (12-78); ALKALINE PHOSPHATASE 79 U/L (45-117); BILIRUBIN,TOTAL 1.2 mg/dL (0.2-1.0); TOTAL PROTEIN 6.1 g/dL (6.4-8.2)
[2018-12-22 08:28] LABS: SALICYLATE LEVEL < 1.7 mg/dL (2.8-20.0)
[2018-12-22] MEDS ORDERED: POTASSIUM CHLORIDE 40 MEQ in SODIUM CHLORIDE 0.9% 500 ML IV ONE (08:30)
[2018-12-22] MEDS ORDERED: CALCIUM GLUCONATE 9.2 MEQ in SODIUM CHLORIDE 0.9% 100 ML IV ONE (08:30)
[2018-12-22] MEDS ORDERED: POTASSIUM CHLORIDE 20 MEQ TAB.ER.PRT PO ONE (08:30)
[2018-12-22] MEDS ORDERED: POTASSIUM CHLORIDE 20 MEQ TAB.ER.PRT ONE (10:01)
[2018-12-22] MEDS ORDERED: POLYETHYLENE GLYCOL 17 GM PACKET PO PRN (10:30)
[2018-12-22] MEDS ORDERED: DOCUSATE 100 MG CAPSULE PO PRN (10:30)
[2018-12-22] MEDS ORDERED: hydrALAzine 20 MG/ML, 1ML IVPush PRN (10:30)
[2018-12-22] MEDS ORDERED: LABETALOL 5MG/ML, 20ML IVPush PRN (10:30)
[2018-12-22] MEDS ORDERED: BISACODYL 10 MG SUPP PR PRN (10:30)
[2018-12-22] MEDS ORDERED: GUAIFENESIN/DM 200-20MG, 10ML UDC PO PRN (10:30)
[2018-12-22] MEDS ORDERED: FAMO20TA7 PO (10:48)
[2018-12-22] MEDS ORDERED: GABA800T5 PO (10:48)
[2018-12-22] MEDS ORDERED: ASPI-650 PO (10:48)
[2018-12-22] MEDS ORDERED: LACT10SO28 PO (10:50)
[2018-12-22] MEDS ORDERED: INSU100V8 SQ (10:51)
[2018-12-22] MEDS ORDERED: QUET25TA7 PO (10:52)
[2018-12-22] MEDS ORDERED: BUDE10.2 IH (10:53)
[2018-12-22] MEDS ORDERED: TAMS-11 PO (10:53)
[2018-12-22] MEDS ORDERED: DEXTROSE 50%, 50ML SYRINGE IVPush PRN (11:00)
[2018-12-22] MEDS ORDERED: GLUCAGON 1 MG IM PRN (11:00)
[2018-12-22] MEDS ORDERED: DEXTROSE 4 GM TAB.CHEW PO PRN (11:00)
[2018-12-22 11:13] LABS: INTERNATIONAL NORMALIZED RATIO 1.37 (0.93-1.1); PROTHROMBIN TIME 14.2 Seconds (9.6-11.5)
[2018-12-22] MEDS ORDERED: OMNIPAQUE 350 MG/ML, 100ML BOTTLE ONE (11:19)
[2018-12-22 11:42] LABS: THYROID STIMULATING HORMONE 0.488 mIU/L (0.358-3.740)
[2018-12-22] MEDS ORDERED: FAMOTIDINE 20 MG TABLET PO SCH (12:00)
[2018-12-22] MEDS ORDERED: PANTOPRAZOLE 40 MG IV IVPush STA (12:00)
[2018-12-22 12:14] LABS: HEMOGLOBIN A1C 5.3 % (4.2-6.3)
[2018-12-22] MEDS ORDERED: PANTOPRAZOLE 40 MG IV ONE (12:46)
[2018-12-22] MEDS ORDERED: MAGNESIUM SULFATE 6 GM in SODIUM CHLORIDE 0.9% 250 ML IV ONE (12:52)
[2018-12-22] MEDS: INSULIN LISPRO 100 UNITS/ML, PEN SQ-INSULIN SCH ×3 (12:53→21:00)
[2018-12-22] MEDS: LACTATED RINGERS 1,000 ML IV SCH (13:07)
--- NOTE | 2018-12-22 13:30 | NUR ---
MEDICATED PER EMAR. PT UP TO BSC.
--- NOTE | 2018-12-22 14:21 | NUR ---
[facility] TELEPHONE HAND-OFF REPORT TO OLGA MARINO. PATIENT READY TO GO TO ROOM NOW.
[2018-12-22] MEDS ORDERED: ALBUTEROL/IPRATROPIUM 2.5MG/0.5MG, 3 ML ONE (14:22)
[2018-12-22] MEDS ORDERED: ALBUTEROL/IPRATROPIUM 2.5MG/0.5MG, 3 ML NPPB SCH (15:00)
[2018-12-22 15:14] VITALS: BP 116/78
[2018-12-22] MEDS: morphine SULFATE 10 MG/ML, 1ML IVPush PRN ×5 (15:32→19:33)
[2018-12-22 15:52] LABS: OCCULT BLOOD NEGATIVE (NEGATIVE)
[2018-12-22 16:45] LABS: CLOSTRIDIUM DIFFICILE ANTIGEN POSITIVE; CLOSTRIDIUM DIFFICILE TOXIN NEGATIVE (Negative)
[2018-12-22] MEDS: HYDROcodone/APAP 5/325 TABLET PO PRN (17:12)
[2018-12-22 18:39] LABS: MICROSCOPIC NOT IND
[2018-12-22] MEDS: GABAPENTIN 400 MG CAPSULE PO SCH ×2 (18:47→21:41)
[2018-12-22] MEDS ORDERED: ALBUTEROL/IPRATROPIUM 2.5MG/0.5MG, 3 ML NPPB PRN (19:00)
[2018-12-22 19:23] VITALS: BP 109/75
[2018-12-22] MEDS: ALBUTEROL/IPRATROPIUM 2.5MG/0.5MG, 3 ML NPPB SCH (19:35)
[2018-12-22 19:52] LABS: AMPHETAMINE SCREEN, URINE Negative (Negative); BARBITURATE SCREEN, URINE Negative (Negative); BENZODIAZEPINE SCREEN, URINE Negative (Negative); CANNABINOID SCREEN, URINE Negative (Negative); COCAINE SCREEN, URINE Negative (Negative); METHADONE SCREEN, URINE Negative (Negative); OPIATE SCREEN, URINE Positive (Negative)
[2018-12-22 20:04] LABS: ALBUMIN 2.1 g/dL (3.4-5.0); ANION GAP 11 mmol/L (5-15); CALCIUM 6.6 mg/dL (8.5-10.1); CHLORIDE 105 mmol/L (98-107); CREATININE 0.58 mg/dL (0.7-1.3)
[2018-12-22] MEDS: BUDESONIDE 0.5 MG/2 ML INHA HHN SCH (21:00)
[2018-12-22] MEDS: POTASSIUM CHLORIDE 60 MEQ in SODIUM CHLORIDE 0.9% 1,000 ML IV ONE ×2 (21:40→23:46)
[2018-12-22] MEDS: METRONIDAZOLE PMX 500MG/100ML 100 ML IV SCH (21:40)
[2018-12-22] MEDS: LACTULOSE 10 GM/15 ML UDC PO SCH (21:41)
[2018-12-22] MEDS: INSULIN GLARGINE 100 UNITS/ML, PEN SQ-INSULIN SCH (21:42)
[2018-12-22] MEDS: SODIUM CHLORIDE FLUSH 10ML SYR IVF SCH (21:42)
[2018-12-22] MEDS: FAMOTIDINE 20 MG/2 ML IVPush SCH (22:15)
[2018-12-23 00:36] VITALS: BP 117/78
[2018-12-23] MEDS: METRONIDAZOLE PMX 500MG/100ML 100 ML IV SCH ×3 (04:07→21:32)
[2018-12-23] MEDS: LACTATED RINGERS 1,000 ML IV SCH ×2 (05:27→21:32)
[2018-12-23 06:29] LABS: BASOPHILS # (AUTO) 0.02 x10^3/uL (0-0.1); BASOPHILS % (AUTO) 0 % (0-1); EOSINOPHILS # (AUTO) 0.13 x10^3/uL (0-0.4); EOSINOPHILS % (AUTO) 2 % (1-7); LYMPHOCYTES # (AUTO) 1.24 x10^3/uL (1-3.4); LYMPHOCYTES % (AUTO) 20 % (22-44); MD NO; MEAN CORPUSCULAR HEMOGLOBIN 29.3 pg (27.5-34.5); MEAN CORPUSCULAR HGB CONC 31.9 g/dL (33.2-36.2); MEAN CORPUSCULAR VOLUME 92.1 fL (81-97); MEAN PLATELET VOLUME 8.8 fL (7.4-10.4); MONOCYTES % (AUTO) 6 % (2-9); NEUTROPHILS % (AUTO) 71 % (42-75); PLATELET COUNT 195 x10^3/uL (130-400); RED BLOOD COUNT 3.82 x10^6/uL (4.38-5.82); RED CELL DISTRIBUTION WIDTH 17.7 % (9.4-14.8)
[2018-12-23 06:40] LABS: ALANINE AMINOTRANSFERASE 47 U/L (12-78); ALBUMIN 2.2 g/dL (3.4-5.0); ANION GAP 8 mmol/L (5-15); CALCIUM 7.1 mg/dL (8.5-10.1); CHLORIDE 109 mmol/L (98-107); CREATININE 0.63 mg/dL (0.7-1.3)
[2018-12-23 06:46] LABS: ALKALINE PHOSPHATASE 92 U/L (45-117); BILIRUBIN,TOTAL 0.9 mg/dL (0.2-1.0); CHOL/HDL RATIO 11.1; CHOLESTEROL, TOTAL 111 mg/dL (140-239); HDL CHOL % 9 % (26-37); HDL CHOLESTEROL (DIRECT) 10 mg/dL (40-60); LDL CHOLESTEROL,CALCULATED 70 mg/dL (54-169); TOTAL PROTEIN 6.3 g/dL (6.4-8.2); TRIGLYCERIDES 156 mg/dL (50-200); VLDL CHOLESTEROL 31 mg/dL (0-25)
[2018-12-23] MEDS: INSULIN LISPRO 100 UNITS/ML, PEN SQ-INSULIN SCH ×4 (07:00→21:00)
[2018-12-23] MEDS: BUDESONIDE 0.5 MG/2 ML INHA HHN SCH ×2 (07:20→18:47)
[2018-12-23] MEDS: ALBUTEROL/IPRATROPIUM 2.5MG/0.5MG, 3 ML NPPB SCH ×4 (07:20→18:47)
[2018-12-23] MEDS ORDERED: PANTOPRAZOLE 40 MG IV IVPush SCH (07:30)
[2018-12-23 08:07] VITALS: BP 113/76
[2018-12-23] MEDS: QUETIAPINE 25MG TABLET PO SCH (09:15)
[2018-12-23] MEDS: LISINOPRIL 10 MG TABLET PO SCH (09:15)
[2018-12-23] MEDS: LACTULOSE 10 GM/15 ML UDC PO SCH ×3 (09:15→21:33)
[2018-12-23] MEDS: GABAPENTIN 400 MG CAPSULE PO SCH ×3 (09:15→21:32)
[2018-12-23] MEDS: FAMOTIDINE 20 MG/2 ML IVPush SCH ×2 (09:16→21:33)
[2018-12-23] MEDS: TAMSULOSIN 0.4 MG CAP.ER.24H PO SCH (09:16)
[2018-12-23] MEDS: SODIUM CHLORIDE FLUSH 10ML SYR IVF SCH ×2 (09:17→21:32)
[2018-12-23] MEDS: VANCOMYCIN 50 MG/ML ORAL SUSP PO SCH ×2 (11:51→18:08)
[2018-12-23 12:41] VITALS: BP 93/68
[2018-12-23] MEDS ORDERED: LACTULOSE 3.3 GM/5 ML ORAL.SOL RC ONE (13:00)
[2018-12-23 20:22] VITALS: BP 130/76
[2018-12-23] MEDS: INSULIN GLARGINE 100 UNITS/ML, PEN SQ-INSULIN SCH (21:00)
[2018-12-23] MEDS: RIFAXIMIN 550 MG TABLET PO SCH (21:33)
[2018-12-24 02:41] VITALS: BP 122/81
[2018-12-24] MEDS: VANCOMYCIN 50 MG/ML ORAL SUSP PO SCH ×5 (05:57→23:49)
[2018-12-24] MEDS: METRONIDAZOLE PMX 500MG/100ML 100 ML IV SCH ×2 (05:58→13:22)
[2018-12-24] MEDS: ALBUTEROL/IPRATROPIUM 2.5MG/0.5MG, 3 ML NPPB SCH ×4 (06:35→19:36)
[2018-12-24] MEDS: BUDESONIDE 0.5 MG/2 ML INHA HHN SCH ×2 (06:35→19:36)
[2018-12-24] MEDS: INSULIN LISPRO 100 UNITS/ML, PEN SQ-INSULIN SCH ×4 (07:00→20:35)
[2018-12-24 08:19] VITALS: BP 131/93
[2018-12-24 08:28] LABS: ALANINE AMINOTRANSFERASE 34 U/L (12-78); ANION GAP 8 mmol/L (5-15); CALCIUM 7.2 mg/dL (8.5-10.1); CHLORIDE 106 mmol/L (98-107); CREATININE 0.57 mg/dL (0.7-1.3)
[2018-12-24 08:30] LABS: ALKALINE PHOSPHATASE 78 U/L (45-117); BILIRUBIN,TOTAL 0.9 mg/dL (0.2-1.0); TOTAL PROTEIN 5.5 g/dL (6.4-8.2)
[2018-12-24] MEDS: TAMSULOSIN 0.4 MG CAP.ER.24H PO SCH (08:33)
[2018-12-24] MEDS: FAMOTIDINE 20 MG/2 ML IVPush SCH ×2 (08:33→20:53)
[2018-12-24] MEDS: RIFAXIMIN 550 MG TABLET PO SCH ×2 (08:33→20:53)
[2018-12-24] MEDS: GABAPENTIN 400 MG CAPSULE PO SCH ×3 (08:33→20:53)
[2018-12-24] MEDS: LACTULOSE 10 GM/15 ML UDC PO SCH ×3 (08:33→20:52)
[2018-12-24] MEDS: QUETIAPINE 25MG TABLET PO SCH (08:33)
[2018-12-24] MEDS: LISINOPRIL 10 MG TABLET PO SCH (08:34)
[2018-12-24] MEDS: SODIUM CHLORIDE FLUSH 10ML SYR IVF SCH ×2 (08:35→20:53)
[2018-12-24] MEDS: LACTATED RINGERS 1,000 ML IV SCH (12:04)
[2018-12-24 14:00] VITALS: BP 109/70
[2018-12-24] MEDS ORDERED: MAGNESIUM SULFATE 6 GM in SODIUM CHLORIDE 0.9% 150 ML IV ONE ×2 (16:30→18:02)
[2018-12-24] MEDS ORDERED: METRONIDAZOLE PMX 500MG/100ML 100 ML IV SCH (16:30)
[2018-12-24] MEDS ORDERED: POTASSIUM PHOSPHATE 44 MEQ in SODIUM CHLORIDE 0.9% 500 ML IV ONE (16:30)
[2018-12-24] MEDS: INSULIN GLARGINE 100 UNITS/ML, PEN SQ-INSULIN SCH (20:47)
[2018-12-24 21:03] VITALS: BP 98/62
[2018-12-25 00:05] VITALS: BP 124/75
[2018-12-25] MEDS: METRONIDAZOLE PMX 500MG/100ML 100 ML IV SCH ×3 (03:04→18:30)
[2018-12-25] MEDS: VANCOMYCIN 50 MG/ML ORAL SUSP PO SCH ×4 (05:33→18:30)
[2018-12-25 06:01] LABS: BASOPHILS # (AUTO) 0.04 x10^3/uL (0-0.1); BASOPHILS % (AUTO) 1 % (0-1); EOSINOPHILS # (AUTO) 0.08 x10^3/uL (0-0.4); EOSINOPHILS % (AUTO) 2 % (1-7); LYMPHOCYTES # (AUTO) 1.07 x10^3/uL (1-3.4); LYMPHOCYTES % (AUTO) 22 % (22-44); MD NO; MEAN CORPUSCULAR HEMOGLOBIN 30.2 pg (27.5-34.5); MEAN CORPUSCULAR HGB CONC 32.5 g/dL (33.2-36.2); MEAN CORPUSCULAR VOLUME 92.8 fL (81-97); MEAN PLATELET VOLUME 9.2 fL (7.4-10.4); MONOCYTES # (AUTO) 0.32 x10^3/uL (0.2-0.8); MONOCYTES % (AUTO) 7 % (2-9); NEUTROPHILS # (AUTO) 3.46 x10^3/uL (1.8-6.8); NEUTROPHILS % (AUTO) 70 % (42-75); PLATELET COUNT 165 x10^3/uL (130-400); RED BLOOD COUNT 2.94 x10^6/uL (4.38-5.82); RED CELL DISTRIBUTION WIDTH 17.2 % (9.4-14.8)
[2018-12-25 06:12] LABS: CHLORIDE 108 mmol/L (98-107)
[2018-12-25 06:25] LABS: ALANINE AMINOTRANSFERASE 21 U/L (12-78); ALBUMIN 1.7 g/dL (3.4-5.0); ALKALINE PHOSPHATASE 66 U/L (45-117); ANION GAP 8 mmol/L (5-15); BILIRUBIN,TOTAL 0.7 mg/dL (0.2-1.0); CALCIUM 6.9 mg/dL (8.5-10.1); CREATININE 0.57 mg/dL (0.7-1.3); TOTAL PROTEIN 4.7 g/dL (6.4-8.2)
[2018-12-25] MEDS: INSULIN LISPRO 100 UNITS/ML, PEN SQ-INSULIN SCH ×4 (07:00→20:38)
[2018-12-25] MEDS: ALBUTEROL/IPRATROPIUM 2.5MG/0.5MG, 3 ML NPPB SCH (07:40)
[2018-12-25] MEDS: BUDESONIDE 0.5 MG/2 ML INHA HHN SCH ×2 (07:40→21:00)
[2018-12-25 08:28] VITALS: BP 122/72
[2018-12-25] MEDS: TAMSULOSIN 0.4 MG CAP.ER.24H PO SCH (09:16)
[2018-12-25] MEDS: LACTULOSE 10 GM/15 ML UDC PO SCH ×3 (09:16→20:45)
[2018-12-25] MEDS: SODIUM CHLORIDE FLUSH 10ML SYR IVF SCH ×2 (09:16→20:45)
[2018-12-25] MEDS: GABAPENTIN 400 MG CAPSULE PO SCH ×3 (09:16→20:45)
[2018-12-25] MEDS: RIFAXIMIN 550 MG TABLET PO SCH ×2 (09:16→20:45)
[2018-12-25] MEDS: LISINOPRIL 10 MG TABLET PO SCH (09:16)
[2018-12-25] MEDS: QUETIAPINE 25MG TABLET PO SCH (09:16)
[2018-12-25] MEDS: FAMOTIDINE 20 MG/2 ML IVPush SCH ×2 (09:18→20:45)
[2018-12-25] MEDS ORDERED: ALBUTEROL/IPRATROPIUM 2.5MG/0.5MG, 3 ML NPPB PRN (11:30)
[2018-12-25] MEDS: LACTATED RINGERS 1,000 ML IV SCH (11:45)
[2018-12-25 14:00] VITALS: BP 125/83
[2018-12-25] MEDS: INSULIN GLARGINE 100 UNITS/ML, PEN SQ-INSULIN SCH (20:38)
[2018-12-25 20:45] VITALS: BP 119/72
[2018-12-26 00:06] VITALS: BP 128/80
[2018-12-26 03:10] VITALS: BP 107/71
[2018-12-26] MEDS: METRONIDAZOLE PMX 500MG/100ML 100 ML IV SCH ×3 (03:10→20:14)
[2018-12-26] MEDS: VANCOMYCIN 50 MG/ML ORAL SUSP PO SCH ×4 (05:21→17:48)
[2018-12-26] MEDS: INSULIN LISPRO 100 UNITS/ML, PEN SQ-INSULIN SCH ×2 (07:00→20:10)
[2018-12-26 08:48] VITALS: BP 121/83
[2018-12-26] MEDS: TAMSULOSIN 0.4 MG CAP.ER.24H PO SCH (09:39)
[2018-12-26] MEDS: LISINOPRIL 10 MG TABLET PO SCH (09:39)
[2018-12-26] MEDS: LACTULOSE 10 GM/15 ML UDC PO SCH ×3 (09:39→20:10)
[2018-12-26] MEDS: GABAPENTIN 400 MG CAPSULE PO SCH ×4 (09:40→20:34)
[2018-12-26] MEDS: QUETIAPINE 25MG TABLET PO SCH (09:40)
[2018-12-26] MEDS: RIFAXIMIN 550 MG TABLET PO SCH ×3 (09:40→20:34)
[2018-12-26] MEDS: FAMOTIDINE 20 MG/2 ML IVPush SCH ×2 (09:40→20:15)
[2018-12-26] MEDS: SODIUM CHLORIDE FLUSH 10ML SYR IVF SCH ×2 (09:40→20:15)
[2018-12-26] MEDS: LACTATED RINGERS 1,000 ML IV SCH ×2 (09:43→22:20)
[2018-12-26] MEDS: BUDESONIDE 0.5 MG/2 ML INHA HHN SCH ×2 (11:25→21:00)
[2018-12-26] MEDS ORDERED: POTASSIUM CHLORIDE 40 MEQ in SODIUM CHLORIDE 0.9% 500 ML IV ONE (11:30)
[2018-12-26] MEDS ORDERED: FUROSEMIDE 40 MG/4 ML IV ONE (11:30)
[2018-12-26 11:46] LABS: ANION GAP 5 mmol/L (5-15); CALCIUM 7.5 mg/dL (8.5-10.1); CHLORIDE 109 mmol/L (98-107)
[2018-12-26 11:47] LABS: CREATININE 0.59 mg/dL (0.7-1.3)
[2018-12-26 12:41] VITALS: BP 118/82
[2018-12-26] MEDS ORDERED: POTASSIUM PHOSPHATE 44 MEQ in SODIUM CHLORIDE 0.9% 500 ML IV ONE (13:00)
[2018-12-26] MEDS ORDERED: MAGNESIUM SULFATE 6 GM in SODIUM CHLORIDE 0.9% 150 ML IV ONE (13:00)
[2018-12-26] MEDS: ALBUTEROL/IPRATROPIUM 2.5MG/0.5MG, 3 ML NPPB SCH ×2 (16:29→20:00)
[2018-12-26] MEDS: POTASSIUM PHOSPHATE 44 MEQ in SODIUM CHLORIDE 0.9% 500 ML IV SCH (16:49)
[2018-12-26] MEDS: ACETAMINOPHEN 325 MG TABLET PO PRN (16:49)
[2018-12-26 19:11] VITALS: BP 90/57
[2018-12-26 20:48] VITALS: BP 95/62
[2018-12-27 00:06] VITALS: BP 124/85
[2018-12-27] MEDS: VANCOMYCIN 50 MG/ML ORAL SUSP PO SCH ×5 (00:11→23:35)
[2018-12-27] MEDS: METRONIDAZOLE PMX 500MG/100ML 100 ML IV SCH ×3 (04:19→21:00)
[2018-12-27 05:31] LABS: ANION GAP 7 mmol/L (5-15); CALCIUM 7.6 mg/dL (8.5-10.1); CHLORIDE 109 mmol/L (98-107); CREATININE 0.54 mg/dL (0.7-1.3)
[2018-12-27 06:01] LABS: BASOPHILS # (AUTO) 0.04 x10^3/uL (0-0.1); BASOPHILS % (AUTO) 1 % (0-1); EOSINOPHILS # (AUTO) 0.07 x10^3/uL (0-0.4); EOSINOPHILS % (AUTO) 1 % (1-7); LYMPHOCYTES # (AUTO) 1.02 x10^3/uL (1-3.4); LYMPHOCYTES % (AUTO) 17 % (22-44); MD NO; MEAN CORPUSCULAR HEMOGLOBIN 30.7 pg (27.5-34.5); MEAN CORPUSCULAR HGB CONC 33.2 g/dL (33.2-36.2); MEAN CORPUSCULAR VOLUME 92.6 fL (81-97); MEAN PLATELET VOLUME 8.9 fL (7.4-10.4); MONOCYTES # (AUTO) 0.29 x10^3/uL (0.2-0.8); MONOCYTES % (AUTO) 5 % (2-9); NEUTROPHILS # (AUTO) 4.65 x10^3/uL (1.8-6.8); NEUTROPHILS % (AUTO) 77 % (42-75); PLATELET COUNT 178 x10^3/uL (130-400); RED BLOOD COUNT 3.27 x10^6/uL (4.38-5.82); RED CELL DISTRIBUTION WIDTH 17.8 % (9.4-14.8)
[2018-12-27 06:13] LABS: ANION GAP 5 mmol/L (5-15); CALCIUM 7.3 mg/dL (8.5-10.1); CHLORIDE 110 mmol/L (98-107)
[2018-12-27 06:20] LABS: INTERNATIONAL NORMALIZED RATIO 1.37 (0.93-1.1); PROTHROMBIN TIME 14.2 Seconds (9.6-11.5)
[2018-12-27] MEDS: BUDESONIDE 0.5 MG/2 ML INHA HHN SCH ×2 (07:15→19:17)
[2018-12-27] MEDS: ALBUTEROL/IPRATROPIUM 2.5MG/0.5MG, 3 ML NPPB SCH ×4 (07:15→19:16)
[2018-12-27] MEDS: INSULIN LISPRO 100 UNITS/ML, PEN SQ-INSULIN SCH ×2 (08:07→20:37)
[2018-12-27 08:16] VITALS: BP 108/70
[2018-12-27] MEDS: FAMOTIDINE 20 MG/2 ML IVPush SCH ×2 (09:54→21:11)
[2018-12-27] MEDS: SODIUM CHLORIDE FLUSH 10ML SYR IVF SCH ×2 (09:54→21:11)
[2018-12-27] MEDS: LACTULOSE 10 GM/15 ML UDC PO SCH ×3 (09:54→20:44)
[2018-12-27] MEDS: QUETIAPINE 25MG TABLET PO SCH (09:55)
[2018-12-27] MEDS: GABAPENTIN 400 MG CAPSULE PO SCH ×3 (09:55→21:10)
[2018-12-27] MEDS: TAMSULOSIN 0.4 MG CAP.ER.24H PO SCH (09:55)
[2018-12-27] MEDS: RIFAXIMIN 550 MG TABLET PO SCH ×2 (09:55→21:10)
[2018-12-27] MEDS: LISINOPRIL 10 MG TABLET PO SCH (09:55)
[2018-12-27] MEDS: POTASSIUM PHOSPHATE 44 MEQ in SODIUM CHLORIDE 0.9% 500 ML IV SCH (10:29)
[2018-12-27] MEDS: LACTATED RINGERS 1,000 ML IV SCH (11:40)
[2018-12-27 14:01] VITALS: BP 125/83
[2018-12-27 21:08] VITALS: BP 121/84
[2018-12-28 01:14] VITALS: BP 92/60
[2018-12-28 03:29] VITALS: BP 106/72
[2018-12-28] MEDS: METRONIDAZOLE PMX 500MG/100ML 100 ML IV SCH (05:22)
[2018-12-28] MEDS: VANCOMYCIN 50 MG/ML ORAL SUSP PO SCH ×4 (05:30→23:07)
[2018-12-28] MEDS: ALBUTEROL/IPRATROPIUM 2.5MG/0.5MG, 3 ML NPPB SCH ×4 (07:00→19:45)
[2018-12-28] MEDS: BUDESONIDE 0.5 MG/2 ML INHA HHN SCH ×2 (07:43→19:45)
[2018-12-28 07:57] VITALS: BP 130/85
[2018-12-28] MEDS: INSULIN LISPRO 100 UNITS/ML, PEN SQ-INSULIN SCH ×2 (09:00→20:52)
[2018-12-28] MEDS: SODIUM CHLORIDE FLUSH 10ML SYR IVF SCH ×2 (09:00→21:00)
[2018-12-28] MEDS: RIFAXIMIN 550 MG TABLET PO SCH ×2 (09:00→22:56)
[2018-12-28] MEDS: LACTULOSE 10 GM/15 ML UDC PO SCH ×3 (09:02→19:48)
[2018-12-28] MEDS: FAMOTIDINE 20 MG/2 ML IVPush SCH (09:03)
[2018-12-28] MEDS: GABAPENTIN 400 MG CAPSULE PO SCH ×3 (09:05→22:57)
[2018-12-28] MEDS: TAMSULOSIN 0.4 MG CAP.ER.24H PO SCH (09:05)
[2018-12-28] MEDS: LISINOPRIL 10 MG TABLET PO SCH (09:05)
[2018-12-28] MEDS: QUETIAPINE 25MG TABLET PO SCH (09:06)
[2018-12-28 11:44] LABS: ANION GAP 5 mmol/L (5-15); CALCIUM 7.8 mg/dL (8.5-10.1); CHLORIDE 106 mmol/L (98-107); CREATININE 0.46 mg/dL (0.7-1.3)
[2018-12-28] MEDS: LACTATED RINGERS 1,000 ML IV SCH (12:21)
[2018-12-28 13:45] VITALS: BP 121/82
[2018-12-28] MEDS ORDERED: MAGNESIUM SULFATE PMX 4GM/100M 100 ML IV ONE (17:00)
[2018-12-28] MEDS ORDERED: MAGNESIUM SULFATE 4 GM in SODIUM CHLORIDE 0.9% 100 ML IV ONE (17:00)
[2018-12-28] MEDS ORDERED: POTASSIUM PHOSPHATE 44 MEQ in SODIUM CHLORIDE 0.9% 500 ML IV ONE (17:00)
[2018-12-28 21:14] VITALS: BP 122/87
[2018-12-28] MEDS: FAMOTIDINE 20 MG TABLET PO SCH (22:57)
[2018-12-29 01:44] VITALS: BP 95/66
[2018-12-29] MEDS: VANCOMYCIN 50 MG/ML ORAL SUSP PO SCH ×4 (05:36→23:04)
[2018-12-29 06:25] LABS: ANION GAP 4 mmol/L (5-15); CALCIUM 7.8 mg/dL (8.5-10.1); CHLORIDE 105 mmol/L (98-107)
[2018-12-29] MEDS: BUDESONIDE 0.5 MG/2 ML INHA HHN SCH ×2 (06:37→21:20)
[2018-12-29] MEDS: ALBUTEROL/IPRATROPIUM 2.5MG/0.5MG, 3 ML NPPB SCH ×4 (06:37→21:20)
[2018-12-29 07:25] VITALS: BP 109/74
[2018-12-29] MEDS: INSULIN LISPRO 100 UNITS/ML, PEN SQ-INSULIN SCH ×2 (09:00→19:57)
[2018-12-29] MEDS: LACTULOSE 10 GM/15 ML UDC PO SCH ×3 (10:47→19:56)
[2018-12-29] MEDS: FAMOTIDINE 20 MG TABLET PO SCH ×2 (10:48→19:56)
[2018-12-29] MEDS: TAMSULOSIN 0.4 MG CAP.ER.24H PO SCH (10:48)
[2018-12-29] MEDS: QUETIAPINE 25MG TABLET PO SCH (10:48)
[2018-12-29] MEDS: LISINOPRIL 10 MG TABLET PO SCH (10:48)
[2018-12-29] MEDS: RIFAXIMIN 550 MG TABLET PO SCH ×2 (10:48→19:56)
[2018-12-29] MEDS: GABAPENTIN 400 MG CAPSULE PO SCH ×3 (10:48→19:56)
[2018-12-29] MEDS: SODIUM CHLORIDE FLUSH 10ML SYR IVF SCH ×2 (10:49→19:56)
[2018-12-29 12:45] VITALS: BP 111/69
[2018-12-29 16:49] VITALS: BP 131/84
[2018-12-29 20:29] VITALS: BP 138/88
[2018-12-30 00:32] VITALS: BP 112/82
[2018-12-30] MEDS: VANCOMYCIN 50 MG/ML ORAL SUSP PO SCH ×4 (04:43→23:01)
[2018-12-30] MEDS: ALBUTEROL/IPRATROPIUM 2.5MG/0.5MG, 3 ML NPPB SCH (07:00)
[2018-12-30 07:58] VITALS: BP 136/87
[2018-12-30] MEDS: BUDESONIDE 0.5 MG/2 ML INHA HHN SCH ×2 (08:27→21:25)
[2018-12-30] MEDS: SODIUM CHLORIDE FLUSH 10ML SYR IVF SCH ×2 (09:00→20:53)
[2018-12-30] MEDS: INSULIN LISPRO 100 UNITS/ML, PEN SQ-INSULIN SCH ×2 (09:00→20:56)
[2018-12-30] MEDS: LISINOPRIL 10 MG TABLET PO SCH (10:07)
[2018-12-30] MEDS: LACTULOSE 10 GM/15 ML UDC PO SCH ×3 (10:07→20:53)
[2018-12-30] MEDS: TAMSULOSIN 0.4 MG CAP.ER.24H PO SCH (10:08)
[2018-12-30] MEDS: RIFAXIMIN 550 MG TABLET PO SCH ×2 (10:08→20:56)
[2018-12-30] MEDS: FAMOTIDINE 20 MG TABLET PO SCH ×2 (10:09→20:56)
[2018-12-30] MEDS: GABAPENTIN 400 MG CAPSULE PO SCH ×3 (10:09→20:55)
[2018-12-30] MEDS: QUETIAPINE 25MG TABLET PO SCH (10:09)
[2018-12-30] MEDS ORDERED: ALBUTEROL/IPRATROPIUM 2.5MG/0.5MG, 3 ML NPPB PRN (12:00)
[2018-12-30 16:48] VITALS: BP 109/70
[2018-12-30] MEDS: ACETAMINOPHEN 325 MG TABLET PO PRN (16:54)
[2018-12-30 19:07] VITALS: BP 113/80
[2018-12-31] MEDS: HYDROcodone/APAP 5/325 TABLET PO PRN (00:37)
[2018-12-31 02:14] VITALS: BP 131/85
[2018-12-31] MEDS: VANCOMYCIN 50 MG/ML ORAL SUSP PO SCH ×4 (05:38→23:00)
[2018-12-31 05:50] LABS: BASOPHILS # (AUTO) 0.03 x10^3/uL (0-0.1); BASOPHILS % (AUTO) 1 % (0-1); EOSINOPHILS # (AUTO) 0.09 x10^3/uL (0-0.4); EOSINOPHILS % (AUTO) 2 % (1-7); LYMPHOCYTES # (AUTO) 1.32 x10^3/uL (1-3.4); LYMPHOCYTES % (AUTO) 26 % (22-44); MD NO; MEAN CORPUSCULAR HEMOGLOBIN 30.5 pg (27.5-34.5); MEAN CORPUSCULAR HGB CONC 33.1 g/dL (33.2-36.2); MEAN CORPUSCULAR VOLUME 92.2 fL (81-97); MEAN PLATELET VOLUME 8.8 fL (7.4-10.4); MONOCYTES # (AUTO) 0.49 x10^3/uL (0.2-0.8); MONOCYTES % (AUTO) 10 % (2-9); NEUTROPHILS % (AUTO) 63 % (42-75); PLATELET COUNT 191 x10^3/uL (130-400); RED CELL DISTRIBUTION WIDTH 17.5 % (9.4-14.8)
[2018-12-31 06:03] LABS: ALBUMIN 2.1 g/dL (3.4-5.0); ANION GAP 8 mmol/L (5-15); CALCIUM 7.8 mg/dL (8.5-10.1); CHLORIDE 106 mmol/L (98-107)
[2018-12-31 06:07] LABS: ALANINE AMINOTRANSFERASE 15 U/L (12-78); ALKALINE PHOSPHATASE 79 U/L (45-117); BILIRUBIN,TOTAL 0.6 mg/dL (0.2-1.0); CREATININE 0.46 mg/dL (0.7-1.3); TOTAL PROTEIN 5.8 g/dL (6.4-8.2)
[2018-12-31] MEDS: ALBUTEROL/IPRATROPIUM 2.5MG/0.5MG, 3 ML NPPB SCH ×4 (07:35→19:47)
[2018-12-31] MEDS: BUDESONIDE 0.5 MG/2 ML INHA HHN SCH ×2 (07:35→19:47)
[2018-12-31 08:00] VITALS: BP 137/89
[2018-12-31] MEDS: INSULIN LISPRO 100 UNITS/ML, PEN SQ-INSULIN SCH ×2 (08:11→21:00)
[2018-12-31] MEDS: TAMSULOSIN 0.4 MG CAP.ER.24H PO SCH (08:47)
[2018-12-31] MEDS: QUETIAPINE 25MG TABLET PO SCH (08:47)
[2018-12-31] MEDS: RIFAXIMIN 550 MG TABLET PO SCH ×3 (08:47→21:00)
[2018-12-31] MEDS: GABAPENTIN 400 MG CAPSULE PO SCH ×4 (08:48→21:00)
[2018-12-31] MEDS: FAMOTIDINE 20 MG TABLET PO SCH ×3 (08:48→21:00)
[2018-12-31] MEDS: LISINOPRIL 10 MG TABLET PO SCH (08:48)
[2018-12-31] MEDS: LACTULOSE 10 GM/15 ML UDC PO SCH ×3 (09:00→20:46)
[2018-12-31] MEDS: SODIUM CHLORIDE FLUSH 10ML SYR IVF SCH ×2 (09:59→21:00)
[2018-12-31 14:06] VITALS: BP 128/82
[2018-12-31 17:40] VITALS: BP 98/45
[2018-12-31 18:57] VITALS: BP 87/59
[2018-12-31 20:46] VITALS: BP_SYST 78; BP_SYST 90; BP_DIAS 55
[2019-01-01 01:41] VITALS: BP 120/64
[2019-01-01] MEDS: VANCOMYCIN 50 MG/ML ORAL SUSP PO SCH ×4 (05:00→23:11)
[2019-01-01] MEDS: BUDESONIDE 0.5 MG/2 ML INHA HHN SCH ×2 (07:07→19:37)
[2019-01-01] MEDS: ALBUTEROL/IPRATROPIUM 2.5MG/0.5MG, 3 ML NPPB SCH ×4 (07:07→19:37)
[2019-01-01 07:18] VITALS: BP 106/72
[2019-01-01] MEDS: GABAPENTIN 400 MG CAPSULE PO SCH ×4 (08:11→21:00)
[2019-01-01] MEDS: TAMSULOSIN 0.4 MG CAP.ER.24H PO SCH (08:11)
[2019-01-01] MEDS: LACTULOSE 10 GM/15 ML UDC PO SCH ×3 (08:11→20:35)
[2019-01-01] MEDS: LISINOPRIL 10 MG TABLET PO SCH (08:11)
[2019-01-01] MEDS: FAMOTIDINE 20 MG TABLET PO SCH ×2 (08:11→20:35)
[2019-01-01] MEDS: RIFAXIMIN 550 MG TABLET PO SCH ×2 (08:11→20:35)
[2019-01-01] MEDS: QUETIAPINE 25MG TABLET PO SCH (08:12)
[2019-01-01] MEDS: INSULIN LISPRO 100 UNITS/ML, PEN SQ-INSULIN SCH ×2 (08:26→20:35)
[2019-01-01] MEDS: SODIUM CHLORIDE FLUSH 10ML SYR IVF SCH ×2 (09:00→20:34)
[2019-01-01 12:22] VITALS: BP 106/68
[2019-01-01 19:50] VITALS: BP 132/68
[2019-01-02 01:39] VITALS: BP 114/78
[2019-01-02] MEDS: VANCOMYCIN 50 MG/ML ORAL SUSP PO SCH ×2 (05:13→11:28)
[2019-01-02] MEDS: BUDESONIDE 0.5 MG/2 ML INHA HHN SCH ×2 (06:29→19:04)
[2019-01-02] MEDS: ALBUTEROL/IPRATROPIUM 2.5MG/0.5MG, 3 ML NPPB SCH ×4 (06:29→19:03)
[2019-01-02 07:12] VITALS: BP 132/82
[2019-01-02] MEDS: INSULIN LISPRO 100 UNITS/ML, PEN SQ-INSULIN SCH ×2 (07:50→21:00)
[2019-01-02] MEDS: LISINOPRIL 10 MG TABLET PO SCH (08:13)
[2019-01-02] MEDS: QUETIAPINE 25MG TABLET PO SCH (08:14)
[2019-01-02] MEDS: FAMOTIDINE 20 MG TABLET PO SCH ×2 (08:14→21:00)
[2019-01-02] MEDS: TAMSULOSIN 0.4 MG CAP.ER.24H PO SCH (08:14)
[2019-01-02] MEDS: RIFAXIMIN 550 MG TABLET PO SCH ×2 (08:14→21:00)
[2019-01-02] MEDS: LACTULOSE 10 GM/15 ML UDC PO SCH ×3 (08:14→21:00)
[2019-01-02] MEDS: GABAPENTIN 400 MG CAPSULE PO SCH ×3 (08:14→21:00)
[2019-01-02] MEDS: SODIUM CHLORIDE FLUSH 10ML SYR IVF SCH ×2 (08:15→21:00)
[2019-01-02 12:56] VITALS: BP 94/57
[2019-01-02 14:17] VITALS: BP 104/69
[2019-01-02 19:45] VITALS: BP 98/61
[2019-01-03 00:28] VITALS: BP 123/76
[2019-01-03] MEDS: ALBUTEROL/IPRATROPIUM 2.5MG/0.5MG, 3 ML NPPB SCH ×4 (07:21→20:00)
[2019-01-03] MEDS: BUDESONIDE 0.5 MG/2 ML INHA HHN SCH ×2 (07:22→21:00)
[2019-01-03 08:00] VITALS: BP 138/87
[2019-01-03] MEDS: INSULIN LISPRO 100 UNITS/ML, PEN SQ-INSULIN SCH ×2 (08:10→21:00)
[2019-01-03 08:26] LABS: BASOPHILS # (AUTO) 0.03 x10^3/uL (0-0.1); BASOPHILS % (AUTO) 1 % (0-1); EOSINOPHILS % (AUTO) 2 % (1-7); LYMPHOCYTES # (AUTO) 2.08 x10^3/uL (1-3.4); LYMPHOCYTES % (AUTO) 34 % (22-44); MD NO; MEAN CORPUSCULAR HEMOGLOBIN 30.5 pg (27.5-34.5); MEAN CORPUSCULAR HGB CONC 32.9 g/dL (33.2-36.2); MEAN CORPUSCULAR VOLUME 92.7 fL (81-97); MEAN PLATELET VOLUME 8.2 fL (7.4-10.4); MONOCYTES # (AUTO) 0.56 x10^3/uL (0.2-0.8); MONOCYTES % (AUTO) 9 % (2-9); NEUTROPHILS # (AUTO) 3.37 x10^3/uL (1.8-6.8); NEUTROPHILS % (AUTO) 55 % (42-75); PLATELET COUNT 264 x10^3/uL (130-400); RED BLOOD COUNT 3.37 x10^6/uL (4.38-5.82); RED CELL DISTRIBUTION WIDTH 18.2 % (9.4-14.8)
[2019-01-03 08:27] LABS: ALANINE AMINOTRANSFERASE 27 U/L (12-78); ALBUMIN 2.5 g/dL (3.4-5.0); ANION GAP 7 mmol/L (5-15); CALCIUM 8.2 mg/dL (8.5-10.1); CHLORIDE 105 mmol/L (98-107); CREATININE 0.57 mg/dL (0.7-1.3)
[2019-01-03 08:30] LABS: ALKALINE PHOSPHATASE 95 U/L (45-117); BILIRUBIN,TOTAL 0.6 mg/dL (0.2-1.0); TOTAL PROTEIN 6.6 g/dL (6.4-8.2)
[2019-01-03] MEDS: SODIUM CHLORIDE FLUSH 10ML SYR IVF SCH ×2 (09:00→21:00)
[2019-01-03] MEDS: LACTULOSE 10 GM/15 ML UDC PO SCH ×3 (09:00→21:27)
[2019-01-03] MEDS: FAMOTIDINE 20 MG TABLET PO SCH ×2 (09:36→21:27)
[2019-01-03] MEDS: LISINOPRIL 10 MG TABLET PO SCH (09:36)
[2019-01-03] MEDS: TAMSULOSIN 0.4 MG CAP.ER.24H PO SCH (09:36)
[2019-01-03] MEDS: GABAPENTIN 400 MG CAPSULE PO SCH ×3 (09:36→21:27)
[2019-01-03] MEDS: RIFAXIMIN 550 MG TABLET PO SCH ×2 (09:36→21:27)
[2019-01-03] MEDS: QUETIAPINE 25MG TABLET PO SCH (09:36)
[2019-01-03 14:00] VITALS: BP 151/76
[2019-01-03] MEDS: PROPRANOLOL 20 MG TABLET PO SCH ×2 (16:14→21:27)
[2019-01-03 17:00] VITALS: BP 105/71
[2019-01-03 19:57] VITALS: BP 115/85
[2019-01-03 21:34] VITALS: BP 111/70
[2019-01-04 02:56] VITALS: BP 114/86
[2019-01-04 05:56] LABS: BASOPHILS # (AUTO) 0.03 x10^3/uL (0-0.1); BASOPHILS % (AUTO) 1 % (0-1); EOSINOPHILS # (AUTO) 0.17 x10^3/uL (0-0.4); EOSINOPHILS % (AUTO) 3 % (1-7); LYMPHOCYTES # (AUTO) 1.65 x10^3/uL (1-3.4); LYMPHOCYTES % (AUTO) 26 % (22-44); MD NO; MEAN CORPUSCULAR HEMOGLOBIN 31.2 pg (27.5-34.5); MEAN CORPUSCULAR HGB CONC 32.8 g/dL (33.2-36.2); MEAN PLATELET VOLUME 8.5 fL (7.4-10.4); MONOCYTES # (AUTO) 0.75 x10^3/uL (0.2-0.8); MONOCYTES % (AUTO) 12 % (2-9); NEUTROPHILS # (AUTO) 3.66 x10^3/uL (1.8-6.8); NEUTROPHILS % (AUTO) 58 % (42-75); PLATELET COUNT 279 x10^3/uL (130-400); RED BLOOD COUNT 3.48 x10^6/uL (4.38-5.82); RED CELL DISTRIBUTION WIDTH 18.7 % (9.4-14.8)
[2019-01-04 06:08] LABS: ALANINE AMINOTRANSFERASE 25 U/L (12-78); ALBUMIN 2.4 g/dL (3.4-5.0); ANION GAP 7 mmol/L (5-15); CALCIUM 8.3 mg/dL (8.5-10.1); CHLORIDE 105 mmol/L (98-107); CREATININE 0.62 mg/dL (0.7-1.3)
[2019-01-04 06:11] LABS: ALKALINE PHOSPHATASE 93 U/L (45-117); BILIRUBIN,TOTAL 0.9 mg/dL (0.2-1.0); TOTAL PROTEIN 6.9 g/dL (6.4-8.2)
[2019-01-04] MEDS: ALBUTEROL/IPRATROPIUM 2.5MG/0.5MG, 3 ML NPPB SCH ×2 (06:25→19:25)
[2019-01-04] MEDS: BUDESONIDE 0.5 MG/2 ML INHA HHN SCH ×2 (06:26→19:25)
[2019-01-04] MEDS: PROPRANOLOL 20 MG TABLET PO SCH ×3 (06:32→21:04)
[2019-01-04 06:56] VITALS: BP 124/77
[2019-01-04 07:20] VITALS: BP 102/78
[2019-01-04] MEDS: INSULIN LISPRO 100 UNITS/ML, PEN SQ-INSULIN SCH ×2 (08:56→19:58)
[2019-01-04] MEDS: SODIUM CHLORIDE FLUSH 10ML SYR IVF SCH ×2 (09:00→21:00)
[2019-01-04] MEDS: LACTULOSE 10 GM/15 ML UDC PO SCH ×3 (09:00→21:03)
[2019-01-04] MEDS: QUETIAPINE 25MG TABLET PO SCH (09:24)
[2019-01-04] MEDS: LISINOPRIL 10 MG TABLET PO SCH (09:24)
[2019-01-04] MEDS: RIFAXIMIN 550 MG TABLET PO SCH ×2 (09:24→21:03)
[2019-01-04] MEDS: TAMSULOSIN 0.4 MG CAP.ER.24H PO SCH (09:24)
[2019-01-04] MEDS: FAMOTIDINE 20 MG TABLET PO SCH ×2 (09:24→21:03)
[2019-01-04] MEDS: GABAPENTIN 400 MG CAPSULE PO SCH ×3 (09:24→21:03)
[2019-01-04 13:00] VITALS: BP 125/69
[2019-01-04] MEDS ORDERED: POTASSIUM CHLORIDE 20 MEQ TAB.ER.PRT PO ONE (16:00)
[2019-01-04 20:00] VITALS: BP 108/58
[2019-01-04 21:02] VITALS: BP 119/81
[2019-01-05 01:16] VITALS: BP 115/69
[2019-01-05] MEDS: PROPRANOLOL 20 MG TABLET PO SCH ×3 (06:21→21:05)
[2019-01-05] MEDS: ALBUTEROL/IPRATROPIUM 2.5MG/0.5MG, 3 ML NPPB SCH ×2 (07:00→21:00)
[2019-01-05] MEDS: BUDESONIDE 0.5 MG/2 ML INHA HHN SCH ×2 (07:00→21:00)
[2019-01-05 07:32] VITALS: BP 98/69
[2019-01-05] MEDS: SODIUM CHLORIDE FLUSH 10ML SYR IVF SCH ×2 (08:00→20:09)
[2019-01-05] MEDS: INSULIN LISPRO 100 UNITS/ML, PEN SQ-INSULIN SCH ×2 (08:00→21:00)
[2019-01-05] MEDS: LACTULOSE 10 GM/15 ML UDC PO SCH ×3 (09:10→21:05)
[2019-01-05] MEDS: TAMSULOSIN 0.4 MG CAP.ER.24H PO SCH (09:10)
[2019-01-05] MEDS: QUETIAPINE 25MG TABLET PO SCH (09:11)
[2019-01-05] MEDS: LISINOPRIL 10 MG TABLET PO SCH (09:11)
[2019-01-05] MEDS: FAMOTIDINE 20 MG TABLET PO SCH ×2 (09:11→21:05)
[2019-01-05] MEDS: RIFAXIMIN 550 MG TABLET PO SCH ×2 (09:11→21:05)
[2019-01-05] MEDS: GABAPENTIN 400 MG CAPSULE PO SCH ×3 (09:11→21:05)
[2019-01-05 09:17] LABS: ALBUMIN 2.4 g/dL (3.4-5.0); ANION GAP 9 mmol/L (5-15); CALCIUM 8.2 mg/dL (8.5-10.1); CHLORIDE 107 mmol/L (98-107); CREATININE 0.58 mg/dL (0.7-1.3)
[2019-01-05 12:54] VITALS: BP 111/69
[2019-01-05 20:46] VITALS: BP 110/50
[2019-01-06 00:24] VITALS: BP 121/84
[2019-01-06 05:17] LABS: ALBUMIN 2.5 g/dL (3.4-5.0); ANION GAP 8 mmol/L (5-15); CALCIUM 8.1 mg/dL (8.5-10.1); CHLORIDE 109 mmol/L (98-107)
[2019-01-06 05:18] LABS: CREATININE 0.56 mg/dL (0.7-1.3)
[2019-01-06] MEDS: PROPRANOLOL 20 MG TABLET PO SCH ×3 (06:10→20:59)
[2019-01-06 07:48] VITALS: BP 119/79
[2019-01-06] MEDS: SODIUM CHLORIDE FLUSH 10ML SYR IVF SCH ×2 (09:00→21:00)
[2019-01-06] MEDS: ALBUTEROL/IPRATROPIUM 2.5MG/0.5MG, 3 ML NPPB SCH ×2 (09:00→21:34)
[2019-01-06] MEDS: INSULIN LISPRO 100 UNITS/ML, PEN SQ-INSULIN SCH ×2 (09:00→20:58)
[2019-01-06] MEDS: RIFAXIMIN 550 MG TABLET PO SCH ×2 (09:07→20:59)
[2019-01-06] MEDS: QUETIAPINE 25MG TABLET PO SCH (09:07)
[2019-01-06] MEDS: TAMSULOSIN 0.4 MG CAP.ER.24H PO SCH (09:07)
[2019-01-06] MEDS: LISINOPRIL 10 MG TABLET PO SCH (09:07)
[2019-01-06] MEDS: LACTULOSE 10 GM/15 ML UDC PO SCH ×3 (09:07→20:59)
[2019-01-06] MEDS: GABAPENTIN 400 MG CAPSULE PO SCH ×3 (09:07→20:59)
[2019-01-06] MEDS: FAMOTIDINE 20 MG TABLET PO SCH ×2 (09:07→20:59)
[2019-01-06] MEDS ORDERED: POTASSIUM CHLORIDE 20 MEQ TAB.ER.PRT PO ONE (11:30)
[2019-01-06] MEDS ORDERED: POTASSIUM CHLORIDE 20 MEQ PACKET PO ONE (13:00)
[2019-01-06 13:07] VITALS: BP 116/72
[2019-01-06] MEDS: BUDESONIDE 0.5 MG/2 ML INHA HHN SCH ×2 (15:15→21:34)
[2019-01-06 20:57] VITALS: BP 134/91
[2019-01-07 00:15] VITALS: BP 151/67
[2019-01-07 05:54] VITALS: BP 105/71
[2019-01-07] MEDS: PROPRANOLOL 20 MG TABLET PO SCH ×3 (06:06→22:03)
[2019-01-07] MEDS: BUDESONIDE 0.5 MG/2 ML INHA HHN SCH ×2 (07:09→20:31)
[2019-01-07] MEDS: ALBUTEROL/IPRATROPIUM 2.5MG/0.5MG, 3 ML NPPB SCH ×2 (07:09→20:31)
[2019-01-07 07:41] VITALS: BP 108/59
[2019-01-07 07:54] LABS: ALBUMIN 2.4 g/dL (3.4-5.0); ANION GAP 7 mmol/L (5-15); CALCIUM 8.1 mg/dL (8.5-10.1); CHLORIDE 113 mmol/L (98-107)
[2019-01-07 07:57] LABS: ALANINE AMINOTRANSFERASE 40 U/L (12-78); ALKALINE PHOSPHATASE 104 U/L (45-117); BILIRUBIN,TOTAL 0.7 mg/dL (0.2-1.0); TOTAL PROTEIN 6.3 g/dL (6.4-8.2)
[2019-01-07] MEDS: INSULIN LISPRO 100 UNITS/ML, PEN SQ-INSULIN SCH ×2 (08:43→21:00)
[2019-01-07] MEDS: RIFAXIMIN 550 MG TABLET PO SCH ×2 (10:13→22:03)
[2019-01-07] MEDS: LISINOPRIL 10 MG TABLET PO SCH (10:13)
[2019-01-07] MEDS: TAMSULOSIN 0.4 MG CAP.ER.24H PO SCH (10:13)
[2019-01-07] MEDS: FAMOTIDINE 20 MG TABLET PO SCH ×2 (10:14→22:03)
[2019-01-07] MEDS: GABAPENTIN 400 MG CAPSULE PO SCH ×3 (10:14→22:03)
[2019-01-07] MEDS: QUETIAPINE 25MG TABLET PO SCH (10:15)
[2019-01-07] MEDS: SODIUM CHLORIDE FLUSH 10ML SYR IVF SCH ×2 (10:15→22:03)
[2019-01-07] MEDS: LACTULOSE 10 GM/15 ML UDC PO SCH ×3 (10:15→22:12)
[2019-01-07 10:53] LABS: ALBUMIN 2.5 g/dL (3.4-5.0); ANION GAP 7 mmol/L (5-15); CALCIUM 8.3 mg/dL (8.5-10.1); CHLORIDE 109 mmol/L (98-107); CREATININE 0.64 mg/dL (0.7-1.3)
[2019-01-07 14:26] VITALS: BP 110/62
[2019-01-07 20:30] VITALS: BP 141/82
[2019-01-08 00:14] VITALS: BP 98/62
[2019-01-08 05:54] VITALS: BP 107/68
[2019-01-08] MEDS: PROPRANOLOL 20 MG TABLET PO SCH ×3 (06:10→21:55)
[2019-01-08] MEDS: BUDESONIDE 0.5 MG/2 ML INHA HHN SCH ×2 (06:40→20:14)
[2019-01-08] MEDS: ALBUTEROL/IPRATROPIUM 2.5MG/0.5MG, 3 ML NPPB SCH ×2 (06:40→20:14)
[2019-01-08] MEDS: INSULIN LISPRO 100 UNITS/ML, PEN SQ-INSULIN SCH ×2 (07:23→21:00)
[2019-01-08 07:58] VITALS: BP 112/61
[2019-01-08] MEDS: SODIUM CHLORIDE FLUSH 10ML SYR IVF SCH ×2 (09:00→21:00)
[2019-01-08 09:16] LABS: ALBUMIN 2.4 g/dL (3.4-5.0); ANION GAP 9 mmol/L (5-15); CALCIUM 8.2 mg/dL (8.5-10.1); CHLORIDE 113 mmol/L (98-107); CREATININE 0.64 mg/dL (0.7-1.3)
[2019-01-08] MEDS: RIFAXIMIN 550 MG TABLET PO SCH ×2 (09:56→21:54)
[2019-01-08] MEDS: TAMSULOSIN 0.4 MG CAP.ER.24H PO SCH (09:56)
[2019-01-08] MEDS: GABAPENTIN 400 MG CAPSULE PO SCH ×3 (09:56→21:54)
[2019-01-08] MEDS: LISINOPRIL 10 MG TABLET PO SCH (09:57)
[2019-01-08] MEDS: QUETIAPINE 25MG TABLET PO SCH (09:57)
[2019-01-08] MEDS: FAMOTIDINE 20 MG TABLET PO SCH ×2 (09:57→21:55)
[2019-01-08] MEDS: LACTULOSE 10 GM/15 ML UDC PO SCH ×3 (09:59→21:55)
[2019-01-08 13:09] VITALS: BP 131/90
[2019-01-08 19:24] VITALS: BP 102/70
[2019-01-08 21:56] VITALS: BP 133/88
[2019-01-09 01:30] VITALS: BP 117/74
[2019-01-09 06:06] VITALS: BP 130/82
[2019-01-09] MEDS: PROPRANOLOL 20 MG TABLET PO SCH ×3 (06:13→21:09)
[2019-01-09] MEDS ORDERED: POTASSIUM CHLORIDE 20 MEQ TAB.ER.PRT PO ONE (07:00)
[2019-01-09] MEDS: RIFAXIMIN 550 MG TABLET PO SCH ×3 (07:45→21:08)
[2019-01-09] MEDS: LACTULOSE 10 GM/15 ML UDC PO SCH ×3 (07:45→21:08)
[2019-01-09] MEDS: GABAPENTIN 400 MG CAPSULE PO SCH ×3 (07:45→21:08)
[2019-01-09] MEDS: TAMSULOSIN 0.4 MG CAP.ER.24H PO SCH (07:45)
[2019-01-09] MEDS: FAMOTIDINE 20 MG TABLET PO SCH ×2 (07:46→21:09)
[2019-01-09] MEDS: SODIUM CHLORIDE FLUSH 10ML SYR IVF SCH ×2 (07:46→21:00)
[2019-01-09] MEDS: QUETIAPINE 25MG TABLET PO SCH (07:46)
[2019-01-09] MEDS: LISINOPRIL 10 MG TABLET PO SCH (07:46)
[2019-01-09] MEDS: BUDESONIDE 0.5 MG/2 ML INHA HHN SCH ×2 (09:00→20:25)
[2019-01-09] MEDS: ALBUTEROL/IPRATROPIUM 2.5MG/0.5MG, 3 ML NPPB SCH ×2 (09:00→20:25)
[2019-01-09] MEDS: INSULIN LISPRO 100 UNITS/ML, PEN SQ-INSULIN SCH ×2 (09:00→21:00)
[2019-01-09 10:28] LABS: ANION GAP 8 mmol/L (5-15); CHLORIDE 109 mmol/L (98-107); CREATININE 0.51 mg/dL (0.7-1.3)
[2019-01-09 13:27] VITALS: BP 120/69
[2019-01-09 19:47] VITALS: BP 130/79
[2019-01-10] VITALS (7 sets, daily range): BP systolic 83–126; BP diastolic 47–88
[2019-01-10] MEDS: PROPRANOLOL 20 MG TABLET PO SCH ×3 (05:36→22:53)
[2019-01-10 08:03] LABS: BASOPHILS # (AUTO) 0.03 x10^3/uL (0-0.1); BASOPHILS % (AUTO) 0 % (0-1); EOSINOPHILS # (AUTO) 0.08 x10^3/uL (0-0.4); EOSINOPHILS % (AUTO) 1 % (1-7); LYMPHOCYTES # (AUTO) 1.96 x10^3/uL (1-3.4); LYMPHOCYTES % (AUTO) 30 % (22-44); MD NO; MEAN CORPUSCULAR HEMOGLOBIN 30.8 pg (27.5-34.5); MEAN CORPUSCULAR HGB CONC 32.9 g/dL (33.2-36.2); MEAN CORPUSCULAR VOLUME 93.7 fL (81-97); MEAN PLATELET VOLUME 8.2 fL (7.4-10.4); MONOCYTES # (AUTO) 0.72 x10^3/uL (0.2-0.8); MONOCYTES % (AUTO) 11 % (2-9); NEUTROPHILS # (AUTO) 3.74 x10^3/uL (1.8-6.8); NEUTROPHILS % (AUTO) 57 % (42-75); PLATELET COUNT 283 x10^3/uL (130-400); RED CELL DISTRIBUTION WIDTH 18.8 % (9.4-14.8)
[2019-01-10 08:07] LABS: ALANINE AMINOTRANSFERASE 39 U/L (12-78); ALBUMIN 2.6 g/dL (3.4-5.0); ANION GAP 8 mmol/L (5-15); CALCIUM 8.3 mg/dL (8.5-10.1); CHLORIDE 108 mmol/L (98-107)
[2019-01-10 08:09] LABS: ALKALINE PHOSPHATASE 113 U/L (45-117); BILIRUBIN,TOTAL 0.7 mg/dL (0.2-1.0); TOTAL PROTEIN 6.8 g/dL (6.4-8.2)
[2019-01-10] MEDS: LACTULOSE 10 GM/15 ML UDC PO SCH ×3 (08:51→22:53)
[2019-01-10] MEDS: RIFAXIMIN 550 MG TABLET PO SCH ×2 (08:51→22:53)
[2019-01-10] MEDS: GABAPENTIN 400 MG CAPSULE PO SCH ×3 (08:51→22:53)
[2019-01-10] MEDS: LISINOPRIL 10 MG TABLET PO SCH (08:52)
[2019-01-10] MEDS: SODIUM CHLORIDE FLUSH 10ML SYR IVF SCH ×2 (08:52→21:00)
[2019-01-10] MEDS: QUETIAPINE 25MG TABLET PO SCH (08:52)
[2019-01-10] MEDS: TAMSULOSIN 0.4 MG CAP.ER.24H PO SCH (08:52)
[2019-01-10] MEDS: FAMOTIDINE 20 MG TABLET PO SCH ×2 (09:00→22:53)
[2019-01-10] MEDS: INSULIN LISPRO 100 UNITS/ML, PEN SQ-INSULIN SCH ×2 (09:14→21:00)
[2019-01-10] MEDS: ALBUTEROL/IPRATROPIUM 2.5MG/0.5MG, 3 ML NPPB SCH ×2 (09:45→19:59)
[2019-01-10] MEDS: BUDESONIDE 0.5 MG/2 ML INHA HHN SCH ×2 (09:45→19:59)
[2019-01-10] MEDS ORDERED: POTASSIUM CHLORIDE 20 MEQ TAB.ER.PRT PO ONE (22:00)
[2019-01-11 03:43] VITALS: BP 91/60
[2019-01-11 05:54] VITALS: BP 94/64
[2019-01-11] MEDS: PROPRANOLOL 20 MG TABLET PO SCH ×3 (05:57→21:49)
[2019-01-11] MEDS: ALBUTEROL/IPRATROPIUM 2.5MG/0.5MG, 3 ML NPPB SCH ×2 (06:55→20:12)
[2019-01-11] MEDS: BUDESONIDE 0.5 MG/2 ML INHA HHN SCH ×2 (06:55→20:11)
[2019-01-11 08:25] LABS: ANION GAP 11 mmol/L (5-15); CALCIUM 8.3 mg/dL (8.5-10.1); CHLORIDE 108 mmol/L (98-107)
[2019-01-11 08:27] LABS: CREATININE 1.03 mg/dL (0.7-1.3)
[2019-01-11] MEDS: LISINOPRIL 10 MG TABLET PO SCH (09:00)
[2019-01-11] MEDS: LACTULOSE 10 GM/15 ML UDC PO SCH ×3 (09:40→21:47)
[2019-01-11] MEDS: FAMOTIDINE 20 MG TABLET PO SCH ×2 (09:40→21:45)
[2019-01-11] MEDS: GABAPENTIN 400 MG CAPSULE PO SCH ×3 (09:40→21:45)
[2019-01-11] MEDS: RIFAXIMIN 550 MG TABLET PO SCH ×2 (09:40→21:49)
[2019-01-11] MEDS: SODIUM CHLORIDE FLUSH 10ML SYR IVF SCH ×2 (09:41→21:45)
[2019-01-11] MEDS: TAMSULOSIN 0.4 MG CAP.ER.24H PO SCH (09:41)
[2019-01-11] MEDS: QUETIAPINE 25MG TABLET PO SCH (09:41)
[2019-01-11] MEDS: INSULIN LISPRO 100 UNITS/ML, PEN SQ-INSULIN SCH ×2 (09:43→21:00)
[2019-01-11 10:10] VITALS: BP 90/60
[2019-01-11 14:44] VITALS: BP 95/58
[2019-01-11] MEDS ORDERED: POTASSIUM CHLORIDE 20 MEQ PACKET PO ONE (17:00)
[2019-01-11] MEDS ORDERED: POTASSIUM CHLORIDE 40 MEQ in SODIUM CHLORIDE 0.9% 500 ML IV ONE (17:00)
[2019-01-11] MEDS: ACETAMINOPHEN 325 MG TABLET PO PRN (17:16)
[2019-01-11 20:55] VITALS: BP 90/47
[2019-01-11 21:49] VITALS: BP 124/67
[2019-01-12] VITALS (8 sets, daily range): BP systolic 64–113; BP diastolic 44–75
[2019-01-12] MEDS: PROPRANOLOL 20 MG TABLET PO SCH ×3 (05:58→21:36)
[2019-01-12] MEDS: ALBUTEROL/IPRATROPIUM 2.5MG/0.5MG, 3 ML NPPB SCH ×2 (07:39→19:29)
[2019-01-12] MEDS: BUDESONIDE 0.5 MG/2 ML INHA HHN SCH ×2 (07:39→19:28)
[2019-01-12 08:10] LABS: ALANINE AMINOTRANSFERASE 46 U/L (12-78); ALBUMIN 2.6 g/dL (3.4-5.0); ANION GAP 6 mmol/L (5-15); CALCIUM 8.4 mg/dL (8.5-10.1); CHLORIDE 110 mmol/L (98-107)
[2019-01-12 08:12] LABS: ALKALINE PHOSPHATASE 118 U/L (45-117); BILIRUBIN,TOTAL 0.5 mg/dL (0.2-1.0); CREATININE 0.77 mg/dL (0.7-1.3); TOTAL PROTEIN 6.6 g/dL (6.4-8.2)
[2019-01-12] MEDS: QUETIAPINE 25MG TABLET PO SCH (09:37)
[2019-01-12] MEDS: LISINOPRIL 10 MG TABLET PO SCH (09:37)
[2019-01-12] MEDS: GABAPENTIN 400 MG CAPSULE PO SCH ×3 (09:37→21:30)
[2019-01-12] MEDS: TAMSULOSIN 0.4 MG CAP.ER.24H PO SCH (09:37)
[2019-01-12] MEDS: SODIUM CHLORIDE FLUSH 10ML SYR IVF SCH ×2 (09:37→21:00)
[2019-01-12] MEDS: LACTULOSE 10 GM/15 ML UDC PO SCH ×3 (09:37→21:30)
[2019-01-12] MEDS: INSULIN LISPRO 100 UNITS/ML, PEN SQ-INSULIN SCH ×2 (09:38→21:00)
[2019-01-12] MEDS: RIFAXIMIN 550 MG TABLET PO SCH ×2 (09:38→21:30)
[2019-01-12] MEDS: FAMOTIDINE 20 MG TABLET PO SCH ×2 (09:38→21:30)
[2019-01-12] MEDS ORDERED: SODIUM CHLORIDE 0.9% 1,000 ML IVBOLUS PRN (20:22)
[2019-01-12] MEDS: ACETAMINOPHEN 325 MG TABLET PO PRN (21:30)
[2019-01-13 01:27] VITALS: BP 95/62
[2019-01-13 05:07] VITALS: BP 91/67
[2019-01-13] MEDS: PROPRANOLOL 20 MG TABLET PO SCH ×3 (05:07→21:11)
[2019-01-13 07:10] VITALS: BP 111/75
[2019-01-13] MEDS: ALBUTEROL/IPRATROPIUM 2.5MG/0.5MG, 3 ML NPPB SCH ×2 (09:00→20:25)
[2019-01-13] MEDS: INSULIN LISPRO 100 UNITS/ML, PEN SQ-INSULIN SCH ×2 (09:00→21:11)
[2019-01-13] MEDS: BUDESONIDE 0.5 MG/2 ML INHA HHN SCH ×2 (09:00→20:25)
[2019-01-13] MEDS: SODIUM CHLORIDE FLUSH 10ML SYR IVF SCH ×2 (09:00→21:10)
[2019-01-13] MEDS: GABAPENTIN 400 MG CAPSULE PO SCH ×3 (09:48→21:11)
[2019-01-13] MEDS: QUETIAPINE 25MG TABLET PO SCH (09:48)
[2019-01-13] MEDS: LISINOPRIL 10 MG TABLET PO SCH (09:49)
[2019-01-13] MEDS: FAMOTIDINE 20 MG TABLET PO SCH ×2 (09:49→21:11)
[2019-01-13] MEDS: TAMSULOSIN 0.4 MG CAP.ER.24H PO SCH (09:49)
[2019-01-13] MEDS: LACTULOSE 10 GM/15 ML UDC PO SCH ×3 (09:49→21:15)
[2019-01-13] MEDS: RIFAXIMIN 550 MG TABLET PO SCH ×2 (09:49→21:11)
[2019-01-13 13:06] VITALS: BP 116/79
[2019-01-13 19:14] VITALS: BP 117/68
[2019-01-14 00:51] VITALS: BP 103/62
[2019-01-14] MEDS: PROPRANOLOL 20 MG TABLET PO SCH ×3 (05:52→21:44)
[2019-01-14] MEDS: ACETAMINOPHEN 325 MG TABLET PO PRN (05:53)
[2019-01-14 05:54] VITALS: BP 110/81
[2019-01-14] MEDS: ALBUTEROL/IPRATROPIUM 2.5MG/0.5MG, 3 ML NPPB SCH ×2 (06:43→20:12)
[2019-01-14] MEDS: BUDESONIDE 0.5 MG/2 ML INHA HHN SCH ×2 (06:43→20:12)
[2019-01-14 07:04] VITALS: BP 106/71
[2019-01-14] MEDS: LACTULOSE 10 GM/15 ML UDC PO SCH ×3 (08:58→19:40)
[2019-01-14] MEDS: FAMOTIDINE 20 MG TABLET PO SCH ×2 (08:59→21:44)
[2019-01-14] MEDS: RIFAXIMIN 550 MG TABLET PO SCH ×2 (08:59→21:44)
[2019-01-14] MEDS: SODIUM CHLORIDE FLUSH 10ML SYR IVF SCH ×2 (08:59→19:41)
[2019-01-14] MEDS: LISINOPRIL 10 MG TABLET PO SCH (08:59)
[2019-01-14] MEDS: TAMSULOSIN 0.4 MG CAP.ER.24H PO SCH (08:59)
[2019-01-14] MEDS: GABAPENTIN 400 MG CAPSULE PO SCH ×3 (08:59→21:43)
[2019-01-14] MEDS: QUETIAPINE 25MG TABLET PO SCH (08:59)
[2019-01-14] MEDS: INSULIN LISPRO 100 UNITS/ML, PEN SQ-INSULIN SCH ×2 (09:00→19:40)
[2019-01-14 14:08] VITALS: BP 133/60
[2019-01-14 19:02] VITALS: BP 130/71
[2019-01-15 02:33] VITALS: BP 110/74
[2019-01-15 05:52] VITALS: BP 105/71
[2019-01-15] MEDS: PROPRANOLOL 20 MG TABLET PO SCH ×3 (05:53→21:50)
[2019-01-15 07:11] LABS: BASOPHILS # (AUTO) 0.05 x10^3/uL (0-0.1); BASOPHILS % (AUTO) 1 % (0-1); EOSINOPHILS # (AUTO) 0.12 x10^3/uL (0-0.4); EOSINOPHILS % (AUTO) 1 % (1-7); LYMPHOCYTES # (AUTO) 2.82 x10^3/uL (1-3.4); LYMPHOCYTES % (AUTO) 32 % (22-44); MD NO; MEAN CORPUSCULAR HEMOGLOBIN 30.8 pg (27.5-34.5); MEAN CORPUSCULAR HGB CONC 32.3 g/dL (33.2-36.2); MEAN CORPUSCULAR VOLUME 95.1 fL (81-97); MEAN PLATELET VOLUME 8.6 fL (7.4-10.4); MONOCYTES # (AUTO) 0.86 x10^3/uL (0.2-0.8); MONOCYTES % (AUTO) 10 % (2-9); NEUTROPHILS # (AUTO) 5.11 x10^3/uL (1.8-6.8); NEUTROPHILS % (AUTO) 57 % (42-75); PLATELET COUNT 229 x10^3/uL (130-400); RED BLOOD COUNT 3.61 x10^6/uL (4.38-5.82); RED CELL DISTRIBUTION WIDTH 18.9 % (9.4-14.8)
[2019-01-15] MEDS: ALBUTEROL/IPRATROPIUM 2.5MG/0.5MG, 3 ML NPPB SCH ×2 (07:15→20:05)
[2019-01-15] MEDS: BUDESONIDE 0.5 MG/2 ML INHA HHN SCH ×2 (07:15→20:05)
[2019-01-15 07:19] LABS: ALANINE AMINOTRANSFERASE 38 U/L (12-78); ALBUMIN 2.3 g/dL (3.4-5.0); ANION GAP 11 mmol/L (5-15); CALCIUM 8.1 mg/dL (8.5-10.1); CHLORIDE 108 mmol/L (98-107); CREATININE 0.59 mg/dL (0.7-1.3)
[2019-01-15 07:21] LABS: ALKALINE PHOSPHATASE 122 U/L (45-117); BILIRUBIN,TOTAL 0.5 mg/dL (0.2-1.0)
[2019-01-15 07:31] VITALS: BP 130/82
[2019-01-15] MEDS: INSULIN LISPRO 100 UNITS/ML, PEN SQ-INSULIN SCH ×2 (09:00→21:00)
[2019-01-15] MEDS: LACTULOSE 10 GM/15 ML UDC PO SCH ×3 (09:00→21:00)
[2019-01-15] MEDS: SODIUM CHLORIDE FLUSH 10ML SYR IVF SCH ×2 (09:00→21:00)
[2019-01-15] MEDS: FAMOTIDINE 20 MG TABLET PO SCH ×2 (09:53→21:50)
[2019-01-15] MEDS: GABAPENTIN 400 MG CAPSULE PO SCH ×3 (09:53→21:50)
[2019-01-15] MEDS: TAMSULOSIN 0.4 MG CAP.ER.24H PO SCH (09:53)
[2019-01-15] MEDS: RIFAXIMIN 550 MG TABLET PO SCH ×2 (09:53→21:50)
[2019-01-15] MEDS: QUETIAPINE 25MG TABLET PO SCH (09:53)
[2019-01-15] MEDS: LISINOPRIL 10 MG TABLET PO SCH (09:53)
[2019-01-15 14:00] VITALS: BP 105/58
[2019-01-15 18:52] VITALS: BP 101/56
[2019-01-16 00:24] VITALS: BP 106/62
[2019-01-16] MEDS: ACETAMINOPHEN 325 MG TABLET PO PRN (05:59)
[2019-01-16] MEDS: PROPRANOLOL 20 MG TABLET PO SCH ×3 (05:59→20:35)
[2019-01-16] MEDS: ALBUTEROL/IPRATROPIUM 2.5MG/0.5MG, 3 ML NPPB SCH ×2 (06:50→20:04)
[2019-01-16] MEDS: BUDESONIDE 0.5 MG/2 ML INHA HHN SCH ×2 (06:50→20:04)
[2019-01-16 06:51] VITALS: BP 99/64
[2019-01-16] MEDS: QUETIAPINE 25MG TABLET PO SCH ×2 (09:00→11:33)
[2019-01-16] MEDS: TAMSULOSIN 0.4 MG CAP.ER.24H PO SCH ×2 (09:00→11:33)
[2019-01-16] MEDS: LISINOPRIL 10 MG TABLET PO SCH (09:00)
[2019-01-16] MEDS: SODIUM CHLORIDE FLUSH 10ML SYR IVF SCH ×2 (09:00→20:34)
[2019-01-16] MEDS: GABAPENTIN 400 MG CAPSULE PO SCH ×4 (09:00→20:27)
[2019-01-16] MEDS: LACTULOSE 10 GM/15 ML UDC PO SCH ×3 (09:00→20:34)
[2019-01-16] MEDS: INSULIN LISPRO 100 UNITS/ML, PEN SQ-INSULIN SCH ×2 (09:00→20:34)
[2019-01-16] MEDS: RIFAXIMIN 550 MG TABLET PO SCH ×3 (09:00→20:27)
[2019-01-16] MEDS: FAMOTIDINE 20 MG TABLET PO SCH ×3 (09:00→20:38)
[2019-01-16 14:19] VITALS: BP 139/75
[2019-01-16 20:23] VITALS: BP 92/63
[2019-01-17 01:56] VITALS: BP 92/62
[2019-01-17 05:30] VITALS: BP 110/76
[2019-01-17] MEDS: PROPRANOLOL 20 MG TABLET PO SCH ×3 (05:30→21:37)
[2019-01-17] MEDS: SODIUM CHLORIDE FLUSH 10ML SYR IVF SCH ×2 (08:55→21:27)
[2019-01-17] MEDS: INSULIN LISPRO 100 UNITS/ML, PEN SQ-INSULIN SCH ×2 (08:56→21:00)
[2019-01-17] MEDS: BUDESONIDE 0.5 MG/2 ML INHA HHN SCH ×2 (09:00→19:55)
[2019-01-17] MEDS: ALBUTEROL/IPRATROPIUM 2.5MG/0.5MG, 3 ML NPPB SCH ×2 (09:00→19:55)
[2019-01-17 09:07] VITALS: BP 113/76
[2019-01-17] MEDS: HEPARIN 5,000 UNITS/ML, 1ML SQ SCH ×2 (09:08→17:47)
[2019-01-17] MEDS: RIFAXIMIN 550 MG TABLET PO SCH ×2 (09:09→21:27)
[2019-01-17] MEDS: QUETIAPINE 25MG TABLET PO SCH (09:09)
[2019-01-17] MEDS: GABAPENTIN 400 MG CAPSULE PO SCH ×3 (09:09→21:27)
[2019-01-17] MEDS: FAMOTIDINE 20 MG TABLET PO SCH ×2 (09:09→21:27)
[2019-01-17] MEDS: TAMSULOSIN 0.4 MG CAP.ER.24H PO SCH (09:09)
[2019-01-17] MEDS: LACTULOSE 10 GM/15 ML UDC PO SCH ×3 (09:10→21:27)
[2019-01-17] MEDS: LISINOPRIL 10 MG TABLET PO SCH (09:10)
[2019-01-17 12:39] VITALS: BP 121/81
[2019-01-17 20:32] VITALS: BP 118/71
[2019-01-18 00:24] VITALS: BP 112/74
[2019-01-18] MEDS: PROPRANOLOL 20 MG TABLET PO SCH ×3 (05:18→22:08)
[2019-01-18] MEDS: HEPARIN 5,000 UNITS/ML, 1ML SQ SCH ×4 (05:18→22:08)
[2019-01-18 08:59] VITALS: BP 132/80
[2019-01-18] MEDS: INSULIN LISPRO 100 UNITS/ML, PEN SQ-INSULIN SCH ×2 (09:00→21:00)
[2019-01-18] MEDS: ALBUTEROL/IPRATROPIUM 2.5MG/0.5MG, 3 ML NPPB SCH ×2 (09:00→19:20)
[2019-01-18] MEDS: SODIUM CHLORIDE FLUSH 10ML SYR IVF SCH ×2 (09:00→22:07)
[2019-01-18] MEDS: BUDESONIDE 0.5 MG/2 ML INHA HHN SCH ×2 (09:00→19:20)
[2019-01-18] MEDS: RIFAXIMIN 550 MG TABLET PO SCH ×2 (09:46→22:07)
[2019-01-18] MEDS: LACTULOSE 10 GM/15 ML UDC PO SCH ×4 (09:46→22:07)
[2019-01-18] MEDS: GABAPENTIN 400 MG CAPSULE PO SCH ×3 (09:47→22:07)
[2019-01-18] MEDS: QUETIAPINE 25MG TABLET PO SCH (09:47)
[2019-01-18] MEDS: LISINOPRIL 10 MG TABLET PO SCH (09:47)
[2019-01-18] MEDS: TAMSULOSIN 0.4 MG CAP.ER.24H PO SCH (09:47)
[2019-01-18] MEDS: FAMOTIDINE 20 MG TABLET PO SCH ×2 (09:47→22:07)
[2019-01-18 15:41] VITALS: BP 150/90
[2019-01-18 21:06] VITALS: BP 127/67
[2019-01-19 00:59] VITALS: BP 124/76
[2019-01-19] MEDS: PROPRANOLOL 20 MG TABLET PO SCH ×3 (05:56→20:21)
[2019-01-19] MEDS: HEPARIN 5,000 UNITS/ML, 1ML SQ SCH ×3 (05:57→20:21)
[2019-01-19] MEDS: BUDESONIDE 0.5 MG/2 ML INHA HHN SCH ×2 (06:40→19:46)
[2019-01-19] MEDS: ALBUTEROL/IPRATROPIUM 2.5MG/0.5MG, 3 ML NPPB SCH ×2 (06:40→19:46)
[2019-01-19 07:00] VITALS: BP 116/67
[2019-01-19 07:09] VITALS: BP 113/64
[2019-01-19] MEDS: SODIUM CHLORIDE FLUSH 10ML SYR IVF SCH ×2 (09:00→20:20)
[2019-01-19] MEDS: INSULIN LISPRO 100 UNITS/ML, PEN SQ-INSULIN SCH ×2 (09:00→20:21)
[2019-01-19] MEDS: GABAPENTIN 400 MG CAPSULE PO SCH ×3 (09:08→20:21)
[2019-01-19] MEDS: LACTULOSE 10 GM/15 ML UDC PO SCH ×3 (09:08→20:21)
[2019-01-19] MEDS: QUETIAPINE 25MG TABLET PO SCH (09:08)
[2019-01-19] MEDS: FAMOTIDINE 20 MG TABLET PO SCH ×2 (09:08→20:21)
[2019-01-19] MEDS: RIFAXIMIN 550 MG TABLET PO SCH ×2 (09:08→20:21)
[2019-01-19] MEDS: LISINOPRIL 10 MG TABLET PO SCH (09:09)
[2019-01-19] MEDS: TAMSULOSIN 0.4 MG CAP.ER.24H PO SCH (09:09)
[2019-01-19 12:30] VITALS: BP 113/82
[2019-01-19 18:33] VITALS: BP 122/86
[2019-01-20 02:27] VITALS: BP 118/76
[2019-01-20] MEDS: PROPRANOLOL 20 MG TABLET PO SCH ×3 (05:54→21:59)
[2019-01-20] MEDS: HEPARIN 5,000 UNITS/ML, 1ML SQ SCH ×3 (05:54→21:59)
[2019-01-20] MEDS: BUDESONIDE 0.5 MG/2 ML INHA HHN SCH ×2 (06:50→20:54)
[2019-01-20] MEDS: ALBUTEROL/IPRATROPIUM 2.5MG/0.5MG, 3 ML NPPB SCH ×2 (06:50→20:55)
[2019-01-20 08:00] VITALS: BP 115/74
[2019-01-20] MEDS: INSULIN LISPRO 100 UNITS/ML, PEN SQ-INSULIN SCH ×2 (09:00→21:00)
[2019-01-20] MEDS: SODIUM CHLORIDE FLUSH 10ML SYR IVF SCH ×4 (09:00→22:01)
[2019-01-20] MEDS: RIFAXIMIN 550 MG TABLET PO SCH ×2 (09:56→21:58)
[2019-01-20] MEDS: TAMSULOSIN 0.4 MG CAP.ER.24H PO SCH (09:56)
[2019-01-20] MEDS: LISINOPRIL 10 MG TABLET PO SCH (09:56)
[2019-01-20] MEDS: GABAPENTIN 400 MG CAPSULE PO SCH ×3 (09:56→21:58)
[2019-01-20] MEDS: FAMOTIDINE 20 MG TABLET PO SCH ×2 (09:56→21:58)
[2019-01-20] MEDS: LACTULOSE 10 GM/15 ML UDC PO SCH ×3 (09:56→21:58)
[2019-01-20] MEDS: QUETIAPINE 25MG TABLET PO SCH (09:56)
[2019-01-20 15:00] VITALS: BP 148/93
[2019-01-20 19:55] VITALS: BP 118/77
[2019-01-21 01:14] VITALS: BP 112/64
[2019-01-21] MEDS: HEPARIN 5,000 UNITS/ML, 1ML SQ SCH ×3 (05:39→21:31)
[2019-01-21] MEDS: PROPRANOLOL 20 MG TABLET PO SCH ×3 (05:39→21:30)
[2019-01-21 07:26] VITALS: BP 121/61
[2019-01-21] MEDS: TAMSULOSIN 0.4 MG CAP.ER.24H PO SCH (08:01)
[2019-01-21] MEDS: LACTULOSE 10 GM/15 ML UDC PO SCH ×3 (08:01→21:31)
[2019-01-21] MEDS: RIFAXIMIN 550 MG TABLET PO SCH ×2 (08:01→21:31)
[2019-01-21] MEDS: LISINOPRIL 10 MG TABLET PO SCH (08:02)
[2019-01-21] MEDS: FAMOTIDINE 20 MG TABLET PO SCH ×2 (08:02→21:31)
[2019-01-21] MEDS: GABAPENTIN 400 MG CAPSULE PO SCH ×3 (08:02→21:30)
[2019-01-21] MEDS: QUETIAPINE 25MG TABLET PO SCH (08:02)
[2019-01-21] MEDS: BUDESONIDE 0.5 MG/2 ML INHA HHN SCH ×2 (09:00→20:57)
[2019-01-21] MEDS: ALBUTEROL/IPRATROPIUM 2.5MG/0.5MG, 3 ML NPPB SCH ×2 (09:00→20:57)
[2019-01-21] MEDS: INSULIN LISPRO 100 UNITS/ML, PEN SQ-INSULIN SCH ×2 (09:00→21:00)
[2019-01-21 15:08] VITALS: BP 122/77
[2019-01-21] MEDS: SODIUM CHLORIDE FLUSH 10ML SYR IVF SCH (19:29)
[2019-01-21 19:49] VITALS: BP 84/44
[2019-01-22 01:47] VITALS: BP 110/73
[2019-01-22 04:46] LABS: BASOPHILS # (AUTO) 0.08 x10^3/uL (0-0.1); BASOPHILS % (AUTO) 2 % (0-1); EOSINOPHILS # (AUTO) 0.15 x10^3/uL (0-0.4); EOSINOPHILS % (AUTO) 3 % (1-7); LYMPHOCYTES # (AUTO) 1.93 x10^3/uL (1-3.4); LYMPHOCYTES % (AUTO) 37 % (22-44); MD NO; MEAN CORPUSCULAR HGB CONC 33.1 g/dL (33.2-36.2); MEAN CORPUSCULAR VOLUME 96.6 fL (81-97); MEAN PLATELET VOLUME 8.3 fL (7.4-10.4); MONOCYTES % (AUTO) 10 % (2-9); NEUTROPHILS # (AUTO) 2.57 x10^3/uL (1.8-6.8); NEUTROPHILS % (AUTO) 49 % (42-75); PLATELET COUNT 225 x10^3/uL (130-400); RED BLOOD COUNT 3.57 x10^6/uL (4.38-5.82); RED CELL DISTRIBUTION WIDTH 18.3 % (9.4-14.8)
[2019-01-22 04:58] LABS: CHLORIDE 107 mmol/L (98-107)
[2019-01-22 05:06] LABS: ALANINE AMINOTRANSFERASE 43 U/L (12-78); ALBUMIN 2.5 g/dL (3.4-5.0); ALKALINE PHOSPHATASE 114 U/L (45-117); ANION GAP 8 mmol/L (5-15); BILIRUBIN,TOTAL 0.6 mg/dL (0.2-1.0); CALCIUM 8.4 mg/dL (8.5-10.1); CREATININE 0.69 mg/dL (0.7-1.3); TOTAL PROTEIN 6.7 g/dL (6.4-8.2)
[2019-01-22] MEDS: HEPARIN 5,000 UNITS/ML, 1ML SQ SCH ×3 (05:42→21:24)
[2019-01-22] MEDS: PROPRANOLOL 20 MG TABLET PO SCH ×3 (05:42→21:23)
[2019-01-22] MEDS ORDERED: POTASSIUM CHLORIDE 20 MEQ TAB.ER.PRT PO ONE (07:30)
[2019-01-22 07:41] VITALS: BP 118/67
[2019-01-22] MEDS: LISINOPRIL 10 MG TABLET PO SCH (08:24)
[2019-01-22] MEDS: QUETIAPINE 25MG TABLET PO SCH (08:24)
[2019-01-22] MEDS: TAMSULOSIN 0.4 MG CAP.ER.24H PO SCH (08:24)
[2019-01-22] MEDS: RIFAXIMIN 550 MG TABLET PO SCH ×2 (08:24→21:23)
[2019-01-22] MEDS: GABAPENTIN 400 MG CAPSULE PO SCH ×3 (08:24→21:23)
[2019-01-22] MEDS: SODIUM CHLORIDE FLUSH 10ML SYR IVF SCH ×2 (08:24→20:13)
[2019-01-22] MEDS: FAMOTIDINE 20 MG TABLET PO SCH ×2 (08:24→21:23)
[2019-01-22] MEDS: LACTULOSE 10 GM/15 ML UDC PO SCH ×3 (08:24→21:24)
[2019-01-22] MEDS: BUDESONIDE 0.5 MG/2 ML INHA HHN SCH ×2 (09:00→20:27)
[2019-01-22] MEDS: INSULIN LISPRO 100 UNITS/ML, PEN SQ-INSULIN SCH ×2 (09:00→20:13)
[2019-01-22] MEDS: ALBUTEROL/IPRATROPIUM 2.5MG/0.5MG, 3 ML NPPB SCH ×2 (09:00→20:27)
[2019-01-22 12:27] VITALS: BP 145/89
[2019-01-22] MEDS ORDERED: PROP20TA PO (16:06)
[2019-01-22] MEDS ORDERED: LACT10SO5 PO (16:06)
[2019-01-22] MEDS ORDERED: RIFA550T4 PO (16:06)
[2019-01-22] MEDS: FERROUS GLUCONATE 324 MG TABLET PO SCH (17:04)
[2019-01-22 19:13] VITALS: BP 103/53
[2019-01-23 01:57] VITALS: BP 95/62
[2019-01-23] MEDS: HEPARIN 5,000 UNITS/ML, 1ML SQ SCH (05:34)
[2019-01-23] MEDS: PROPRANOLOL 20 MG TABLET PO SCH (05:34)
[2019-01-23] MEDS: INSULIN LISPRO 100 UNITS/ML, PEN SQ-INSULIN SCH (07:30)
[2019-01-23 08:15] VITALS: BP 119/80
[2019-01-23] MEDS: LACTULOSE 10 GM/15 ML UDC PO SCH (08:58)
[2019-01-23] MEDS: GABAPENTIN 400 MG CAPSULE PO SCH (08:58)
[2019-01-23] MEDS: LISINOPRIL 10 MG TABLET PO SCH (08:58)
[2019-01-23] MEDS: TAMSULOSIN 0.4 MG CAP.ER.24H PO SCH (08:58)
[2019-01-23] MEDS: RIFAXIMIN 550 MG TABLET PO SCH (08:58)
[2019-01-23] MEDS: FAMOTIDINE 20 MG TABLET PO SCH (08:58)
[2019-01-23] MEDS: FERROUS GLUCONATE 324 MG TABLET PO SCH (08:59)
[2019-01-23] MEDS: QUETIAPINE 25MG TABLET PO SCH (08:59)
[2019-01-23] MEDS: BUDESONIDE 0.5 MG/2 ML INHA HHN SCH (09:00)
[2019-01-23] MEDS: ALBUTEROL/IPRATROPIUM 2.5MG/0.5MG, 3 ML NPPB SCH (09:00)
[2019-01-23] MEDS: SODIUM CHLORIDE FLUSH 10ML SYR IVF SCH (09:00)
== END 2019-01-23 13:06 | disposition home health service (06) | DRG 371 ==
LOC: ED 08:46 → EDIP 09:51 → 4EST 15:10
PROVIDERS: ADMIT Internal Medicine; ATTEND Internal Medicine
DX: A04.72 Enterocolitis due to Clostridium difficile, not specified as recurrent (principal); K72.00 Acute and subacute hepatic failure without coma; E43 Unspecified severe protein-calorie malnutrition; M48.54XA Collapsed vertebra, not elsewhere classified, thoracic region, initial encounter for fracture; I50.32 Chronic diastolic (congestive) heart failure; M48.56XA Collapsed vertebra, not elsewhere classified, lumbar region, initial encounter for fracture; E83.39 Other disorders of phosphorus metabolism; E83.42 Hypomagnesemia; E83.51 Hypocalcemia; Z51.5 Encounter for palliative care; Z66 Do not resuscitate; D64.9 Anemia, unspecified; E11.9 Type 2 diabetes mellitus without complications; B18.2 Chronic viral hepatitis C; E66.9 Obesity, unspecified; F04 Amnestic disorder due to known physiological condition; M54.9 Dorsalgia, unspecified; G89.29 Other chronic pain; E78.5 Hyperlipidemia, unspecified; E87.6 Hypokalemia; F17.210 Nicotine dependence, cigarettes, uncomplicated; I11.0 Hypertensive heart disease with heart failure; F10.20 Alcohol dependence, uncomplicated; J44.9 Chronic obstructive pulmonary disease, unspecified; K59.00 Constipation, unspecified; K74.60 Unspecified cirrhosis of liver; K76.0 Fatty (change of) liver, not elsewhere classified; Z79.4 Long term (current) use of insulin; Z68.21 Body mass index [BMI] 21.0-21.9, adult; Z87.01 Personal history of pneumonia (recurrent); Z79.51 Long term (current) use of inhaled steroids; Z79.82 Long term (current) use of aspirin; Z79.899 Other long term (current) drug therapy; Z80.0 Family history of malignant neoplasm of digestive organs; Z82.3 Family history of stroke; Z86.73 Personal history of transient ischemic attack (TIA), and cerebral infarction without residual deficits
CPT/HCPCS: 36415; 99285; J3370; J3490; J7620; J7626; 70450; 71045; 71046; 74177; 80048; 80053; 80061; 80069; 80307; 81003; 82040; 82140; 82272; 82607; 82728; 82962; 83036; 83540; 83550; 83605; 83690; 83735; 84100; 84439; 84443; 84466; 85025; 85610; 85730; 87040; 87324; 87493; 93005; 94640; 96365; 96366; 96368; 96375; G0378; J0610; J1644; J1940; J2405; J3475; J3480; Q9967; C9113; J1815; J2270; J7030; J7040; J7050; J7120